=== PATIENT | male | born 1965 | race Caucasian/White ===

== ENCOUNTER 2019-07-20 16:42 | Emergency (ER) | payer OTHER ==
--- NOTE | 2019-07-20 18:20 | RAD ---
XR Hand Rt 3 View STANDARD: 07/20/2019 6:11 PM CLINICAL INDICATION: Injection injury of the right hand from a decrease none COMPARISON: None. TECHNIQUE: 3 views. Laterality: Right hand. FINDINGS: Bones: No acute fracture or subluxation demonstrated. There is healed deformity involving the right index finger proximal phalanx. There is a ununited fracture involving the ulnar styloid process. 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 Soft Tissue: Soft tissues are normal appearing.. IMPRESSION: No acute fracture or subluxation demonstrated..
[2019-07-20] MEDS ORDERED: Adacel (T-DAP) 0.5 ML SYRINGE ONE (18:30)
[2019-07-20] MEDS ORDERED: Triple Antibiotic Oint 1 GM Packet ONE ×2 (18:32→19:53)
[2019-07-20 18:58] LABS: #Basophils 0.1 thou/uL (0.0-0.2); #Eosinphils 0.1 thou/uL (0.0-0.7); #Monocytes 0.9 thou/uL (0.11-0.59); %Basophils 0.5 % (0.0-1.0); %Lymphocytes 15.5 % (21.0-51.0); %Monocytes 6.8 % (0.0-10.0); %Neutrophils 76.2 % (42.0-75.0); Hemoglobin 15.2 g/dL (14.0-18.0); Mean Corpuscular Hemoglobin 29.4 pg (27.0-31.0); Mean Corpuscular Volume 86.3 fL (78.0-98.0); Mean Platelet Volume 8.1 fL (7.4-10.4); Platelet Count 214 thou/uL (130-400); Red Blood Cell (RBC) Count 5.18 mill/uL (4.70-6.10); White Blood Cell (WBC) Count 13.1 thou/uL (4.8-10.8)
[2019-07-20] MEDS ORDERED: cefTRIAXone\\ROCEPHIN 1 GM VIAL ONE (19:02)
[2019-07-20 19:18] LABS: ALT (SGPT) 37 U/L (8-55); AST (SGOT) 19 U/L (5-34); Alkaline Phosphatase 48 U/L (40-150); Anion Gap 15 mmol/L (10-20); BUN (Urea Nitrogen) 21 mg/dL (8.4-25.7); Bilirubin, Total 0.4 mg/dL (0.2-1.2); Calc. Creatinine Clearance 0 mL/min (70-130); Calcium 9.8 mg/dL (7.8-10.44); Carbon Dioxide 22 mmol/L (22-29); Chloride 102 mmol/L (98-107); Estimated GFR-MDRD 70; Globulin 3.1 g/dL (2.4-3.5); Glucose 97 mg/dL (70-105); Potassium 4.1 mmol/L (3.5-5.1); Protein, Total 8.1 g/dL (6.0-8.3); Sodium 135 mmol/L (136-145)
== END 2019-07-20 20:08 | disposition home or self-care (01) ==
LOC: ERS 16:42
DX: S61.411A Laceration without foreign body of right hand, initial encounter (principal); I10 Essential (primary) hypertension; Z23 Encounter for immunization; W27.0XXA Contact with workbench tool, initial encounter
CPT/HCPCS: 80053; 85025; 90471; 90715; 96365; J0696

== ENCOUNTER 2021-07-19 10:11 | Outpatient (CLI) | payer BC | END 2021-07-19 10:12 | disposition home or self-care (01) | LOC: SCSMRI 10:11 | PROVIDERS: ATTEND Anesthesiology Pain Medicine | DX: M43.16 Spondylolisthesis, lumbar region (principal); M43.17 Spondylolisthesis, lumbosacral region; M48.061 Spinal stenosis, lumbar region without neurogenic claudication; M47.816 Spondylosis without myelopathy or radiculopathy, lumbar region; M51.36 Other intervertebral disc degeneration, lumbar region; M48.07 Spinal stenosis, lumbosacral region | CPT/HCPCS: 72148 ==

== ENCOUNTER 2021-08-24 22:23 | Inpatient (IN) | payer BC ==
[2021-08-24] MEDS ORDERED: Dexamethasone 10 MG/ML VIAL ONE (22:39)
[2021-08-24] MEDS ORDERED: Ketorolac Tromethamine 30 MG/ML VIAL ONE (22:39)
[2021-08-24] MEDS ORDERED: Albuterol 200 PUFF (6.7GM INHALER) ONE (22:39)
[2021-08-24 23:53] LABS: #Lymphocytes 0.7 thou/uL (1.20-3.40); #Monocytes 0.3 thou/uL (0.11-0.59); #Neutrophils 5.2 thou/uL (1.40-6.50); %Basophils 0.4 % (0.0-1.0); %Eosinophils 0.1 % (0.0-10.0); %Lymphocytes 10.8 % (21.0-51.0); %Monocytes 4.9 % (0.0-10.0); %Neutrophils 83.8 % (42.0-75.0); Hemoglobin 12.8 g/dL (14.0-18.0); Mean Corpuscular HGB CONC 32.3 g/dL (32.0-36.0); Mean Corpuscular Hemoglobin 27.6 pg (27.0-31.0); Mean Corpuscular Volume 85.4 fL (78.0-98.0); Mean Platelet Volume 9.6 fL (7.4-10.4); Platelet Count 127 thou/uL (130-400); Red Blood Cell (RBC) Count 4.64 mill/uL (4.70-6.10); White Blood Cell (WBC) Count 6.2 thou/uL (4.8-10.8)
[2021-08-25 00:03] LABS: ALT (SGPT) 35 U/L (8-55); AST (SGOT) 54 U/L (5-34); Albumin 3.5 g/dL (3.5-5.0); Alkaline Phosphatase 40 U/L (40-110); Anion Gap 14 mmol/L (10-20); BUN (Urea Nitrogen) 19 mg/dL (8.4-25.7); Bilirubin, Total 0.4 mg/dL (0.2-1.2); Calc. Creatinine Clearance 0 mL/min (70-130); Calcium 7.9 mg/dL (7.8-10.44); Carbon Dioxide 21 mmol/L (22-29); Chloride 101 mmol/L (98-107); Globulin 2.9 g/dL (2.4-3.5); Glucose 110 mg/dL (70-105); Potassium 3.7 mmol/L (3.5-5.1); Protein, Total 6.4 g/dL (6.0-8.3); Sodium 132 mmol/L (136-145)
[2021-08-25] MEDS ORDERED: Acetaminophen 500 MG TAB ONE (02:38)
[2021-08-25 03:40] LABS: SARS-CoV-2 NAA Rapid Test DETECTED (NotDetected)
[2021-08-25] MEDS ORDERED: Ondansetron PF 4 MG/2 ML Vial IVP PRN (04:30)
[2021-08-25] MEDS ORDERED: Pharmacy to Dose REMDESIVIR IVPB PRN (05:00)
[2021-08-25 07:11] LABS: Hemoglobin 13.2 g/dL (14.0-18.0); Mean Corpuscular HGB CONC 33.1 g/dL (32.0-36.0); Mean Corpuscular Hemoglobin 28.3 pg (27.0-31.0); Mean Corpuscular Volume 85.6 fL (78.0-98.0); Mean Platelet Volume 9.2 fL (7.4-10.4); Platelet Count 145 thou/uL (130-400); Red Blood Cell (RBC) Count 4.66 mill/uL (4.70-6.10); White Blood Cell (WBC) Count 5.7 thou/uL (4.8-10.8)
[2021-08-25 07:57] LABS: Band 13 % (5-11); Eosinophils 1 % (0-10); Lymphocytes 14 % (21-51); MDiff Complete? YES; Monocytes 2 % (0-10); Neutrophil 70 % (42-75); Platelet Morphology Comment Appears Adequate; RBC Morphology Normal
[2021-08-25] MEDS ORDERED: REMDESIVIR 200 MG in Sodium Chloride 0.9% 250 ML 210 ML IV SCH (09:00)
[2021-08-25] MEDS ORDERED: Famotidine 20 MG TAB ONE (09:21)
[2021-08-25] MEDS ORDERED: Enoxaparin Sodium 40 MG/0.4 ML SYRINGE ONE (09:21)
[2021-08-25] MEDS ORDERED: Zinc Sulfate 220 MG CAP ONE (09:28)
[2021-08-25] MEDS ORDERED: Aspirin 325 MG TAB ONE (09:28)
[2021-08-25] MEDS ORDERED: Ascorbic Acid 500 mg Chewable Tablet ONE (09:29)
[2021-08-25] MEDS ORDERED: Enoxaparin Sodium 100 MG/ML SYRINGE ONE (09:30)
[2021-08-25] MEDS ORDERED: Cholecalciferol 1,000 UNITS (25 MCG) TAB ONE (09:30)
[2021-08-25] MEDS: Ascorbic Acid 500 mg Chewable Tablet PO SCH (09:40)
[2021-08-25] MEDS: Famotidine 20 MG TAB PO SCH ×2 (09:40→20:31)
[2021-08-25] MEDS: Cholecalciferol 1,000 UNITS (25 MCG) TAB PO SCH (09:40)
[2021-08-25] MEDS: Enoxaparin Sodium 40 MG/0.4 ML SYRINGE SC SCH ×2 (09:40→20:31)
[2021-08-25] MEDS: Zinc Sulfate 220 MG CAP PO SCH (09:40)
[2021-08-25] MEDS ORDERED: Iopamidol-370 76% 500 ML 1 ML ONE (10:38)
[2021-08-25] MEDS: Dexamethasone 10 MG/ML VIAL SLOW IVP SCH (12:00)
[2021-08-25] MEDS ORDERED: Pharmacy to Dose BARICITINIB IVPB PRN (14:39)
[2021-08-25] MEDS ORDERED: Prevnar 13-Val Conj/PF 0.5 ML SYRINGE IM ONE (15:00)
[2021-08-25] MEDS ORDERED: BARICITINIB 2 MG TAB PO SCH (15:30)
[2021-08-25 16:00] LABS: Base Excess (BEa) -0.4 mEq/L (-2.0 to +3.0); CO2 Tension 30.1 mmHg (35.0-45.0); Calcium, Ionized (arterial) 1.09 mmol/L (1.12-1.30); Carboxyhemoglobin (COHb) 0.5 gm% (0.0-3.0); Hemoglobin (Hb) 13.7 g/dL (14.0-18.0); Potassium - ABG Lab 4.06 mmol/L (3.70-5.30); pH, Arterial 7.48 (7.35-7.45)
[2021-08-25 16:01] LABS: O2 Tension (PaO2), arterial 58.3 mmHg (80.0-100.0)
[2021-08-25 16:02] LABS: ALV-art Gradient 474.475 mmHg (0-20); Puncture Site RRA
[2021-08-25] MEDS: Azithromycin 500 MG in Sodium Chloride 0.9% 250 ML 250 ML IVPB SCH (16:12)
[2021-08-25] MEDS: cefTRIAXone\\ROCEPHIN 500 MG in Sodium Chloride 0.9% 100 ML IVPB SCH (16:13)
[2021-08-26 04:09] LABS: #Lymphocytes 1.1 thou/uL (1.20-3.40); #Monocytes 0.5 thou/uL (0.11-0.59); #Neutrophils 4.5 thou/uL (1.40-6.50); %Basophils 0.1 % (0.0-1.0); %Eosinophils 0.1 % (0.0-10.0); %Lymphocytes 18.1 % (21.0-51.0); %Monocytes 8.8 % (0.0-10.0); %Neutrophils 72.8 % (42.0-75.0); Hemoglobin 12.7 g/dL (14.0-18.0); Mean Corpuscular HGB CONC 32.8 g/dL (32.0-36.0); Mean Corpuscular Hemoglobin 28.4 pg (27.0-31.0); Mean Corpuscular Volume 86.6 fL (78.0-98.0); Mean Platelet Volume 9.5 fL (7.4-10.4); Platelet Count 175 thou/uL (130-400); RBC Distribution Width 13.2 % (11.5-14.5); Red Blood Cell (RBC) Count 4.47 mill/uL (4.70-6.10); White Blood Cell (WBC) Count 6.2 thou/uL (4.8-10.8)
[2021-08-26 04:28] LABS: ALT (SGPT) 43 U/L (8-55); AST (SGOT) 63 U/L (5-34); Albumin 3.5 g/dL (3.5-5.0); Alkaline Phosphatase 43 U/L (40-110); Anion Gap 15 mmol/L (10-20); BUN (Urea Nitrogen) 26 mg/dL (8.4-25.7); Bilirubin, Total 0.4 mg/dL (0.2-1.2); Calc. Creatinine Clearance 0 mL/min (70-130); Calcium 8.5 mg/dL (7.8-10.44); Carbon Dioxide 25 mmol/L (22-29); Chloride 103 mmol/L (98-107); Globulin 2.9 g/dL (2.4-3.5); Glucose 152 mg/dL (70-105); Potassium 4.5 mmol/L (3.5-5.1); Protein, Total 6.4 g/dL (6.0-8.3); Sodium 138 mmol/L (136-145)
[2021-08-26] MEDS: Famotidine 20 MG TAB PO SCH ×2 (08:14→20:06)
[2021-08-26] MEDS: Zinc Sulfate 220 MG CAP PO SCH (08:14)
[2021-08-26] MEDS: BARICITINIB 2 MG TAB PO SCH (08:14)
[2021-08-26] MEDS: Cholecalciferol 1,000 UNITS (25 MCG) TAB PO SCH (08:14)
[2021-08-26] MEDS: REMDESIVIR 100 MG in Sodium Chloride 0.9% 250 ML 230 ML IV SCH (08:14)
[2021-08-26] MEDS: Ascorbic Acid 500 mg Chewable Tablet PO SCH (08:14)
[2021-08-26] MEDS: Enoxaparin Sodium 40 MG/0.4 ML SYRINGE SC SCH (08:14)
[2021-08-26] MEDS: Dexamethasone 10 MG/ML VIAL SLOW IVP SCH (08:18)
[2021-08-26] MEDS: cefTRIAXone\\ROCEPHIN 500 MG in Sodium Chloride 0.9% 100 ML IVPB SCH (15:01)
[2021-08-26] MEDS: Azithromycin 500 MG in Sodium Chloride 0.9% 250 ML 250 ML IVPB SCH (15:01)
[2021-08-26] MEDS: methylPREDNISolone Sod Succ/PF 125 MG in Sodium Chloride 0.9% 250 ML 250 ML IVPB SCH (16:08)
[2021-08-26] MEDS: Enoxaparin Sodium 60 MG/0.6 ML SYRINGE SC SCH (20:06)
[2021-08-27] MEDS: Benzonatate 100 MG CAP PO PRN (00:27)
[2021-08-27 04:54] LABS: Hemoglobin 12.2 g/dL (14.0-18.0); Mean Corpuscular HGB CONC 31.5 g/dL (32.0-36.0); Mean Corpuscular Hemoglobin 27.5 pg (27.0-31.0); Mean Corpuscular Volume 87.3 fL (78.0-98.0); Mean Platelet Volume 9.8 fL (7.4-10.4); Platelet Count 230 thou/uL (130-400); RBC Distribution Width 13.1 % (11.5-14.5); Red Blood Cell (RBC) Count 4.45 mill/uL (4.70-6.10); White Blood Cell (WBC) Count 10.9 thou/uL (4.8-10.8)
[2021-08-27 05:06] LABS: ALT (SGPT) 45 U/L (8-55); AST (SGOT) 52 U/L (5-34); Albumin 3.5 g/dL (3.5-5.0); Alkaline Phosphatase 53 U/L (40-110); Anion Gap 15 mmol/L (10-20); BUN (Urea Nitrogen) 37 mg/dL (8.4-25.7); Bilirubin, Total 0.5 mg/dL (0.2-1.2); Calc. Creatinine Clearance 138 mL/min (70-130); Calcium 8.2 mg/dL (7.8-10.44); Carbon Dioxide 21 mmol/L (22-29); Chloride 105 mmol/L (98-107); Globulin 2.9 g/dL (2.4-3.5); Glucose 156 mg/dL (70-105); Potassium 4.8 mmol/L (3.5-5.1); Protein, Total 6.4 g/dL (6.0-8.3); Sodium 136 mmol/L (136-145)
[2021-08-27 06:04] LABS: Band 16 % (5-11); Lymphocytes 11 % (21-51); MDiff Complete? YES; Monocytes 2 % (0-10); Neutrophil 69 % (42-75); Reactive Lymphocytes 2 % (0-10)
[2021-08-27] MEDS: BARICITINIB 2 MG TAB PO SCH (08:26)
[2021-08-27] MEDS: Cholecalciferol 1,000 UNITS (25 MCG) TAB PO SCH (08:26)
[2021-08-27] MEDS: Enoxaparin Sodium 60 MG/0.6 ML SYRINGE SC SCH ×2 (08:26→20:47)
[2021-08-27] MEDS: Zinc Sulfate 220 MG CAP PO SCH (08:26)
[2021-08-27] MEDS: Ascorbic Acid 500 mg Chewable Tablet PO SCH (08:26)
[2021-08-27] MEDS: Famotidine 20 MG TAB PO SCH ×2 (08:26→20:48)
[2021-08-27] MEDS: REMDESIVIR 100 MG in Sodium Chloride 0.9% 250 ML 230 ML IV SCH (08:27)
[2021-08-27] MEDS: methylPREDNISolone Sod Succ/PF 125 MG in Sodium Chloride 0.9% 250 ML 250 ML IVPB SCH (12:08)
[2021-08-27] MEDS: cefTRIAXone\\ROCEPHIN 500 MG in Sodium Chloride 0.9% 100 ML IVPB SCH (15:17)
[2021-08-27] MEDS: Azithromycin 500 MG in Sodium Chloride 0.9% 250 ML 250 ML IVPB SCH (15:17)
[2021-08-27] MEDS: Acetaminophen 325 MG TAB PO PRN (20:47)
[2021-08-28] MEDS: Enoxaparin Sodium 60 MG/0.6 ML SYRINGE SC SCH ×2 (07:39→19:56)
[2021-08-28] MEDS: Zinc Sulfate 220 MG CAP PO SCH (07:39)
[2021-08-28] MEDS: Ascorbic Acid 500 mg Chewable Tablet PO SCH (07:39)
[2021-08-28] MEDS: Furosemide 40 MG/4 ML VIAL SLOW IVP SCH (07:39)
[2021-08-28] MEDS: BARICITINIB 2 MG TAB PO SCH (07:40)
[2021-08-28] MEDS: Famotidine 20 MG TAB PO SCH ×2 (07:40→19:56)
[2021-08-28] MEDS: Cholecalciferol 1,000 UNITS (25 MCG) TAB PO SCH (07:43)
[2021-08-28 07:50] LABS: ALT (SGPT) 45 U/L (8-55); AST (SGOT) 42 U/L (5-34); Albumin 3.5 g/dL (3.5-5.0); Alkaline Phosphatase 80 U/L (40-110); Anion Gap 14 mmol/L (10-20); BUN (Urea Nitrogen) 37 mg/dL (8.4-25.7); Bilirubin, Total 0.5 mg/dL (0.2-1.2); Calc. Creatinine Clearance 147 mL/min (70-130); Calcium 8.2 mg/dL (7.8-10.44); Carbon Dioxide 21 mmol/L (22-29); Chloride 107 mmol/L (98-107); Globulin 3.2 g/dL (2.4-3.5); Glucose 166 mg/dL (70-105); Potassium 4.6 mmol/L (3.5-5.1); Protein, Total 6.7 g/dL (6.0-8.3); Sodium 137 mmol/L (136-145)
[2021-08-28 08:03] LABS: Mean Corpuscular HGB CONC 32.8 g/dL (32.0-36.0); Mean Corpuscular Hemoglobin 28.3 pg (27.0-31.0); Mean Corpuscular Volume 86.4 fL (78.0-98.0); Mean Platelet Volume 9.1 fL (7.4-10.4); Platelet Count 277 thou/uL (130-400); RBC Distribution Width 12.9 % (11.5-14.5); Red Blood Cell (RBC) Count 4.59 mill/uL (4.70-6.10); White Blood Cell (WBC) Count 14.8 thou/uL (4.8-10.8)
[2021-08-28 08:19] LABS: Band 3 % (5-11); Lymphocytes 10 % (21-51); MDiff Complete? YES; Monocytes 8 % (0-10); Myelocyte 1 % (0-0); Neutrophil 77 % (42-75); Platelet Morphology Comment Appears Adequate; RBC Morphology Normal; Reactive Lymphocytes 1 % (0-10)
[2021-08-28] MEDS: REMDESIVIR 100 MG in Sodium Chloride 0.9% 250 ML 230 ML IV SCH (09:12)
[2021-08-28] MEDS: methylPREDNISolone Sod Succ/PF 125 MG in Sodium Chloride 0.9% 250 ML 250 ML IVPB SCH (10:26)
[2021-08-28] MEDS: Azithromycin 500 MG in Sodium Chloride 0.9% 250 ML 250 ML IVPB SCH (15:19)
[2021-08-28] MEDS: cefTRIAXone\\ROCEPHIN 500 MG in Sodium Chloride 0.9% 100 ML IVPB SCH (15:20)
[2021-08-29] MEDS: Famotidine 20 MG TAB PO SCH ×2 (09:21→20:01)
[2021-08-29] MEDS: REMDESIVIR 100 MG in Sodium Chloride 0.9% 250 ML 230 ML IV SCH (09:21)
[2021-08-29] MEDS: BARICITINIB 2 MG TAB PO SCH (09:21)
[2021-08-29] MEDS: Enoxaparin Sodium 60 MG/0.6 ML SYRINGE SC SCH ×2 (09:21→20:01)
[2021-08-29] MEDS: Cholecalciferol 1,000 UNITS (25 MCG) TAB PO SCH (09:21)
[2021-08-29] MEDS: Furosemide 40 MG/4 ML VIAL SLOW IVP SCH (09:21)
[2021-08-29] MEDS: Ascorbic Acid 500 mg Chewable Tablet PO SCH (09:21)
[2021-08-29] MEDS: Zinc Sulfate 220 MG CAP PO SCH (09:21)
[2021-08-29] MEDS: ALPRAZolam 0.25 MG TAB PO PRN ×2 (12:26→20:02)
[2021-08-29] MEDS: Loratadine 10 MG TAB PO PRN (12:27)
[2021-08-29] MEDS: cefTRIAXone\\ROCEPHIN 500 MG in Sodium Chloride 0.9% 100 ML IVPB SCH (15:33)
[2021-08-29] MEDS: methylPREDNISolone Sod Succ/PF 125 MG in Sodium Chloride 0.9% 250 ML 250 ML IVPB SCH (15:33)
[2021-08-29] MEDS: Azithromycin 500 MG in Sodium Chloride 0.9% 250 ML 250 ML IVPB SCH (15:33)
[2021-08-30 05:05] LABS: Hemoglobin 13.4 g/dL (14.0-18.0); Mean Corpuscular Hemoglobin 28.1 pg (27.0-31.0); Mean Platelet Volume 9.3 fL (7.4-10.4); Platelet Count 195 thou/uL (130-400); RBC Distribution Width 12.8 % (11.5-14.5); Red Blood Cell (RBC) Count 4.79 mill/uL (4.70-6.10); White Blood Cell (WBC) Count 20.5 thou/uL (4.8-10.8)
[2021-08-30 05:32] LABS: Anion Gap 15 mmol/L (10-20); BUN (Urea Nitrogen) 30 mg/dL (8.4-25.7); Calc. Creatinine Clearance 163 mL/min (70-130); Calcium 8.4 mg/dL (7.8-10.44); Carbon Dioxide 23 mmol/L (22-29); Chloride 106 mmol/L (98-107); Glucose 156 mg/dL (70-105); Potassium 4.6 mmol/L (3.5-5.1); Sodium 139 mmol/L (136-145)
[2021-08-30 06:09] LABS: Band 4 % (5-11); Lymphocytes 2 % (21-51); MDiff Complete? YES; Monocytes 7 % (0-10); Neutrophil 87 % (42-75)
[2021-08-30] MEDS: Famotidine 20 MG TAB PO SCH ×2 (08:10→20:11)
[2021-08-30] MEDS: Ascorbic Acid 500 mg Chewable Tablet PO SCH (08:11)
[2021-08-30] MEDS: BARICITINIB 2 MG TAB PO SCH (08:11)
[2021-08-30] MEDS: ALPRAZolam 0.25 MG TAB PO PRN ×2 (08:12→20:11)
[2021-08-30] MEDS: Furosemide 40 MG/4 ML VIAL SLOW IVP SCH (08:12)
[2021-08-30] MEDS: Zinc Sulfate 220 MG CAP PO SCH (08:12)
[2021-08-30] MEDS: Enoxaparin Sodium 60 MG/0.6 ML SYRINGE SC SCH ×2 (08:14→20:11)
[2021-08-30] MEDS: Cholecalciferol 1,000 UNITS (25 MCG) TAB PO SCH (08:17)
[2021-08-30] MEDS: methylPREDNISolone Sod Succ/PF 125 MG in Sodium Chloride 0.9% 250 ML 250 ML IVPB SCH (15:27)
[2021-08-30] MEDS: cefTRIAXone\\ROCEPHIN 500 MG in Sodium Chloride 0.9% 100 ML IVPB SCH (15:27)
[2021-08-30] MEDS: Azithromycin 500 MG in Sodium Chloride 0.9% 250 ML 250 ML IVPB SCH (15:27)
[2021-08-30] MEDS: FlunisoLIDE 0.025% Nasal Spray 25 ml Bottle EA NARE SCH (20:10)
[2021-08-31] MEDS: Furosemide 40 MG/4 ML VIAL SLOW IVP SCH (08:39)
[2021-08-31] MEDS: Enoxaparin Sodium 60 MG/0.6 ML SYRINGE SC SCH ×2 (08:39→21:11)
[2021-08-31] MEDS: BARICITINIB 2 MG TAB PO SCH (08:41)
[2021-08-31] MEDS: Zinc Sulfate 220 MG CAP PO SCH (08:41)
[2021-08-31] MEDS: Ascorbic Acid 500 mg Chewable Tablet PO SCH (08:41)
[2021-08-31] MEDS: FlunisoLIDE 0.025% Nasal Spray 25 ml Bottle EA NARE SCH ×2 (08:42→21:18)
[2021-08-31] MEDS: Famotidine 20 MG TAB PO SCH ×2 (08:42→21:13)
[2021-08-31] MEDS: Cholecalciferol 1,000 UNITS (25 MCG) TAB PO SCH (08:42)
[2021-08-31] MEDS: traMADol HCl 50 MG TAB PO PRN ×2 (10:50→21:11)
[2021-08-31] MEDS: methylPREDNISolone Sod Succ/PF 125 MG in Sodium Chloride 0.9% 250 ML 250 ML IVPB SCH (17:08)
[2021-09-01] MEDS: Enoxaparin Sodium 60 MG/0.6 ML SYRINGE SC SCH ×2 (09:34→21:32)
[2021-09-01] MEDS: Furosemide 40 MG/4 ML VIAL SLOW IVP SCH (09:34)
[2021-09-01] MEDS: Ascorbic Acid 500 mg Chewable Tablet PO SCH (09:37)
[2021-09-01] MEDS: Zinc Sulfate 220 MG CAP PO SCH (09:37)
[2021-09-01] MEDS: Famotidine 20 MG TAB PO SCH ×2 (09:38→21:51)
[2021-09-01] MEDS: BARICITINIB 2 MG TAB PO SCH (09:38)
[2021-09-01] MEDS: FlunisoLIDE 0.025% Nasal Spray 25 ml Bottle EA NARE SCH ×2 (09:38→21:53)
[2021-09-01] MEDS: Cholecalciferol 1,000 UNITS (25 MCG) TAB PO SCH (09:38)
[2021-09-01] MEDS: methylPREDNISolone Sod Succ/PF 125 MG in Sodium Chloride 0.9% 250 ML 250 ML IVPB SCH (16:34)
[2021-09-01] MEDS: traMADol HCl 50 MG TAB PO PRN (21:52)
[2021-09-02] MEDS: Enoxaparin Sodium 60 MG/0.6 ML SYRINGE SC SCH ×2 (09:19→21:28)
[2021-09-02] MEDS: BARICITINIB 2 MG TAB PO SCH (09:19)
[2021-09-02] MEDS: FlunisoLIDE 0.025% Nasal Spray 25 ml Bottle EA NARE SCH ×2 (09:19→21:28)
[2021-09-02] MEDS: Ascorbic Acid 500 mg Chewable Tablet PO SCH (09:19)
[2021-09-02] MEDS: Furosemide 40 MG/4 ML VIAL SLOW IVP SCH (09:21)
[2021-09-02] MEDS: Famotidine 20 MG TAB PO SCH ×2 (09:21→21:28)
[2021-09-02] MEDS: Zinc Sulfate 220 MG CAP PO SCH (09:22)
[2021-09-02] MEDS: Cholecalciferol 1,000 UNITS (25 MCG) TAB PO SCH (10:20)
[2021-09-02] MEDS: methylPREDNISolone Sod Succ/PF 125 MG in Sodium Chloride 0.9% 250 ML 250 ML IVPB SCH (16:54)
[2021-09-03 06:22] LABS: #Basophils 0.1 thou/uL (0.0-0.2); #Eosinphils 0.1 thou/uL (0.0-0.7); #Lymphocytes 0.6 thou/uL (1.20-3.40); #Monocytes 1.1 thou/uL (0.11-0.59); #Neutrophils 18.6 thou/uL (1.40-6.50); %Basophils 0.5 % (0.0-1.0); %Eosinophils 0.3 % (0.0-10.0); %Lymphocytes 3.1 % (21.0-51.0); %Monocytes 5.2 % (0.0-10.0); %Neutrophils 90.9 % (42.0-75.0); Hemoglobin 14.3 g/dL (14.0-18.0); Mean Corpuscular HGB CONC 33.6 g/dL (32.0-36.0); Mean Corpuscular Hemoglobin 28.1 pg (27.0-31.0); Mean Corpuscular Volume 83.9 fL (78.0-98.0); Mean Platelet Volume 9.5 fL (7.4-10.4); Platelet Count 263 thou/uL (130-400); RBC Distribution Width 12.8 % (11.5-14.5); Red Blood Cell (RBC) Count 5.06 mill/uL (4.70-6.10); White Blood Cell (WBC) Count 20.5 thou/uL (4.8-10.8)
[2021-09-03 06:38] LABS: ALT (SGPT) 42 U/L (8-55); AST (SGOT) 25 U/L (5-34); Albumin 3.5 g/dL (3.5-5.0); Alkaline Phosphatase 73 U/L (40-110); Anion Gap 15 mmol/L (10-20); BUN (Urea Nitrogen) 27 mg/dL (8.4-25.7); Bilirubin, Total 0.8 mg/dL (0.2-1.2); Calc. Creatinine Clearance 163 mL/min (70-130); Calcium 8.7 mg/dL (7.8-10.44); Carbon Dioxide 25 mmol/L (22-29); Chloride 99 mmol/L (98-107); Globulin 3.2 g/dL (2.4-3.5); Glucose 166 mg/dL (70-105); Protein, Total 6.7 g/dL (6.0-8.3); Sodium 134 mmol/L (136-145)
[2021-09-03] MEDS: Enoxaparin Sodium 60 MG/0.6 ML SYRINGE SC SCH ×2 (08:15→21:28)
[2021-09-03] MEDS: Zinc Sulfate 220 MG CAP PO SCH (08:16)
[2021-09-03] MEDS: Famotidine 20 MG TAB PO SCH (08:16)
[2021-09-03] MEDS: Furosemide 40 MG/4 ML VIAL SLOW IVP SCH (08:16)
[2021-09-03] MEDS: Ascorbic Acid 500 mg Chewable Tablet PO SCH (08:16)
[2021-09-03] MEDS: Cholecalciferol 1,000 UNITS (25 MCG) TAB PO SCH (08:17)
[2021-09-03] MEDS: BARICITINIB 2 MG TAB PO SCH (08:17)
[2021-09-03] MEDS: FlunisoLIDE 0.025% Nasal Spray 25 ml Bottle EA NARE SCH ×2 (09:00→21:50)
[2021-09-03] MEDS: methylPREDNISolone Sod Succ/PF 125 MG in Sodium Chloride 0.9% 250 ML 250 ML IVPB SCH (18:35)
[2021-09-04 04:45] LABS: Anion Gap 15 mmol/L (10-20); BUN (Urea Nitrogen) 30 mg/dL (8.4-25.7); Calc. Creatinine Clearance 152 mL/min (70-130); Calcium 8.9 mg/dL (7.8-10.44); Carbon Dioxide 24 mmol/L (22-29); Chloride 98 mmol/L (98-107); Glucose 172 mg/dL (70-105); Potassium 5.2 mmol/L (3.5-5.1); Sodium 132 mmol/L (136-145)
[2021-09-04 04:52] LABS: Band 3 % (5-11); Lymphocytes 1 % (21-51); MDiff Complete? YES; Mean Corpuscular HGB CONC 33.1 g/dL (32.0-36.0); Mean Corpuscular Hemoglobin 27.9 pg (27.0-31.0); Mean Corpuscular Volume 84.4 fL (78.0-98.0); Mean Platelet Volume 10.2 fL (7.4-10.4); Metamyelocyte 1 % (0-0); Monocytes 4 % (0-10); Myelocyte 1 % (0-0); Neutrophil 90 % (42-75); Platelet Count 280 thou/uL (130-400); Platelet Morphology Comment Appears Adequate; RBC Distribution Width 12.9 % (11.5-14.5); RBC Morphology Normal; Red Blood Cell (RBC) Count 5.02 mill/uL (4.70-6.10); White Blood Cell (WBC) Count 22.2 thou/uL (4.8-10.8)
[2021-09-04] MEDS: predniSONE 20 MG TAB PO SCH (10:03)
[2021-09-04] MEDS: Furosemide 20 MG TAB PO SCH (10:03)
[2021-09-04] MEDS: Zinc Sulfate 220 MG CAP PO SCH (10:03)
[2021-09-04] MEDS: FlunisoLIDE 0.025% Nasal Spray 25 ml Bottle EA NARE SCH ×2 (10:03→20:15)
[2021-09-04] MEDS: Ascorbic Acid 500 mg Chewable Tablet PO SCH (10:03)
[2021-09-04] MEDS: Enoxaparin Sodium 60 MG/0.6 ML SYRINGE SC SCH ×2 (10:03→20:14)
[2021-09-04] MEDS: Cholecalciferol 1,000 UNITS (25 MCG) TAB PO SCH (10:03)
[2021-09-04] MEDS: BARICITINIB 2 MG TAB PO SCH (10:10)
[2021-09-04] MEDS: Loratadine 10 MG TAB PO PRN (20:15)
[2021-09-04] MEDS: Benzonatate 100 MG CAP PO PRN (20:15)
[2021-09-05] MEDS: Benzonatate 100 MG CAP PO PRN ×3 (00:34→21:06)
[2021-09-05] MEDS: ALPRAZolam 0.25 MG TAB PO PRN ×2 (00:34→21:06)
[2021-09-05 04:33] LABS: Anion Gap 16 mmol/L (10-20); BUN (Urea Nitrogen) 25 mg/dL (8.4-25.7); Calc. Creatinine Clearance 144 mL/min (70-130); Calcium 9.1 mg/dL (7.8-10.44); Carbon Dioxide 26 mmol/L (22-29); Chloride 98 mmol/L (98-107); Glucose 93 mg/dL (70-105); Potassium 4.6 mmol/L (3.5-5.1); Sodium 135 mmol/L (136-145)
[2021-09-05 04:39] LABS: Band 1 % (5-11); Hemoglobin 14.5 g/dL (14.0-18.0); Lymphocytes 5 % (21-51); MDiff Complete? YES; Mean Corpuscular Volume 84.6 fL (78.0-98.0); Mean Platelet Volume 10.6 fL (7.4-10.4); Monocytes 23 % (0-10); Neutrophil 71 % (42-75); Platelet Count 263 thou/uL (130-400); Platelet Morphology Comment Appears Adequate; RBC Morphology Normal; Red Blood Cell (RBC) Count 5.17 mill/uL (4.70-6.10); White Blood Cell (WBC) Count 24.1 thou/uL (4.8-10.8)
[2021-09-05] MEDS: FlunisoLIDE 0.025% Nasal Spray 25 ml Bottle EA NARE SCH ×2 (09:21→21:06)
[2021-09-05] MEDS: Enoxaparin Sodium 60 MG/0.6 ML SYRINGE SC SCH ×2 (09:22→21:06)
[2021-09-05] MEDS: Furosemide 20 MG TAB PO SCH (09:22)
[2021-09-05] MEDS: Zinc Sulfate 220 MG CAP PO SCH (09:22)
[2021-09-05] MEDS: predniSONE 20 MG TAB PO SCH (09:22)
[2021-09-05] MEDS: Ascorbic Acid 500 mg Chewable Tablet PO SCH (09:22)
[2021-09-05] MEDS: Cholecalciferol 1,000 UNITS (25 MCG) TAB PO SCH (09:22)
[2021-09-05] MEDS: BARICITINIB 2 MG TAB PO SCH (09:30)
[2021-09-05] MEDS: Loratadine 10 MG TAB PO PRN (21:06)
[2021-09-06 04:32] LABS: #Eosinphils 0.3 thou/uL (0.0-0.7); #Lymphocytes 1.3 thou/uL (1.20-3.40); #Monocytes 1.6 thou/uL (0.11-0.59); %Basophils 0.1 % (0.0-1.0); %Eosinophils 1.7 % (0.0-10.0); %Lymphocytes 6.4 % (21.0-51.0); %Monocytes 7.8 % (0.0-10.0); %Neutrophils 84.1 % (42.0-75.0); Hemoglobin 13.9 g/dL (14.0-18.0); Mean Corpuscular HGB CONC 33.4 g/dL (32.0-36.0); Mean Corpuscular Hemoglobin 28.2 pg (27.0-31.0); Mean Corpuscular Volume 84.4 fL (78.0-98.0); Platelet Count 270 thou/uL (130-400); RBC Distribution Width 12.9 % (11.5-14.5); Red Blood Cell (RBC) Count 4.92 mill/uL (4.70-6.10); White Blood Cell (WBC) Count 20.3 thou/uL (4.8-10.8)
[2021-09-06 04:53] LABS: Anion Gap 13 mmol/L (10-20); BUN (Urea Nitrogen) 24 mg/dL (8.4-25.7); Calc. Creatinine Clearance 169 mL/min (70-130); Calcium 8.4 mg/dL (7.8-10.44); Carbon Dioxide 26 mmol/L (22-29); Chloride 99 mmol/L (98-107); Glucose 87 mg/dL (70-105); Potassium 4.2 mmol/L (3.5-5.1); Sodium 134 mmol/L (136-145)
[2021-09-06] MEDS: Benzonatate 100 MG CAP PO PRN ×2 (08:34→21:21)
[2021-09-06] MEDS: Enoxaparin Sodium 60 MG/0.6 ML SYRINGE SC SCH ×2 (08:34→21:21)
[2021-09-06] MEDS: Ascorbic Acid 500 mg Chewable Tablet PO SCH (08:34)
[2021-09-06] MEDS: Zinc Sulfate 220 MG CAP PO SCH (08:35)
[2021-09-06] MEDS: Furosemide 20 MG TAB PO SCH (08:35)
[2021-09-06] MEDS: predniSONE 20 MG TAB PO SCH (08:35)
[2021-09-06] MEDS: BARICITINIB 2 MG TAB PO SCH (08:35)
[2021-09-06] MEDS: FlunisoLIDE 0.025% Nasal Spray 25 ml Bottle EA NARE SCH ×2 (08:35→22:11)
[2021-09-06] MEDS: Cholecalciferol 1,000 UNITS (25 MCG) TAB PO SCH (08:35)
[2021-09-06] MEDS: guaiFENesin/Codeine 200 mg/20 mg 10 ml Cup PO PRN (18:07)
[2021-09-06] MEDS: Loratadine 10 MG TAB PO PRN (18:07)
[2021-09-06] MEDS: ALPRAZolam 0.25 MG TAB PO PRN (21:21)
[2021-09-07 04:14] LABS: #Eosinphils 0.3 thou/uL (0.0-0.7); #Monocytes 1.7 thou/uL (0.11-0.59); #Neutrophils 17.4 thou/uL (1.40-6.50); %Basophils 0.2 % (0.0-1.0); %Eosinophils 1.5 % (0.0-10.0); %Monocytes 8.2 % (0.0-10.0); %Neutrophils 85.2 % (42.0-75.0); Hemoglobin 12.7 g/dL (14.0-18.0); Mean Corpuscular HGB CONC 32.6 g/dL (32.0-36.0); Mean Corpuscular Volume 85.9 fL (78.0-98.0); Mean Platelet Volume 9.8 fL (7.4-10.4); Platelet Count 244 thou/uL (130-400); RBC Distribution Width 13.3 % (11.5-14.5); Red Blood Cell (RBC) Count 4.55 mill/uL (4.70-6.10); White Blood Cell (WBC) Count 20.5 thou/uL (4.8-10.8)
[2021-09-07 04:39] LABS: Anion Gap 13 mmol/L (10-20); BUN (Urea Nitrogen) 17 mg/dL (8.4-25.7); Calc. Creatinine Clearance 171 mL/min (70-130); Calcium 8.4 mg/dL (7.8-10.44); Carbon Dioxide 29 mmol/L (22-29); Chloride 97 mmol/L (98-107); Glucose 89 mg/dL (70-105); Potassium 4.2 mmol/L (3.5-5.1); Sodium 135 mmol/L (136-145)
[2021-09-07] MEDS: Benzonatate 100 MG CAP PO PRN ×3 (07:41→21:46)
[2021-09-07] MEDS: guaiFENesin/Codeine 200 mg/20 mg 10 ml Cup PO PRN ×2 (07:41→14:45)
[2021-09-07] MEDS: Loratadine 10 MG TAB PO PRN (07:41)
[2021-09-07] MEDS: Zinc Sulfate 220 MG CAP PO SCH (08:40)
[2021-09-07] MEDS: Cholecalciferol 1,000 UNITS (25 MCG) TAB PO SCH (08:40)
[2021-09-07] MEDS: BARICITINIB 2 MG TAB PO SCH (08:40)
[2021-09-07] MEDS: predniSONE 20 MG TAB PO SCH (08:40)
[2021-09-07] MEDS: Furosemide 20 MG TAB PO SCH (08:40)
[2021-09-07] MEDS: Ascorbic Acid 500 mg Chewable Tablet PO SCH (08:40)
[2021-09-07] MEDS: Enoxaparin Sodium 60 MG/0.6 ML SYRINGE SC SCH ×2 (08:40→21:45)
[2021-09-07] MEDS: FlunisoLIDE 0.025% Nasal Spray 25 ml Bottle EA NARE SCH ×2 (08:41→21:48)
[2021-09-07] MEDS ORDERED: methylPREDNISolone Sod Succ/PF 125 MG/2 ML VIAL IVP SCH (09:15)
[2021-09-07] MEDS ORDERED: Metoprolol Tartrate 5 MG/5 ML VIAL IVP SCH (09:15)
[2021-09-07] MEDS ORDERED: Zolpidem Tartrate 5 MG TAB PO PRN (09:41)
[2021-09-07] MEDS: ALPRAZolam 0.25 MG TAB PO PRN (21:46)
[2021-09-07] MEDS: Acetaminophen 325 MG TAB PO PRN (21:57)
[2021-09-08] MEDS: guaiFENesin/Codeine 200 mg/20 mg 10 ml Cup PO PRN (03:15)
[2021-09-08] MEDS: Loratadine 10 MG TAB PO PRN ×2 (03:15→08:46)
[2021-09-08 04:24] LABS: #Eosinphils 0.1 thou/uL (0.0-0.7); #Monocytes 1.5 thou/uL (0.11-0.59); #Neutrophils 16.3 thou/uL (1.40-6.50); %Basophils 0.1 % (0.0-1.0); %Eosinophils 0.3 % (0.0-10.0); %Lymphocytes 5.2 % (21.0-51.0); %Monocytes 7.7 % (0.0-10.0); %Neutrophils 86.6 % (42.0-75.0); Hemoglobin 13.7 g/dL (14.0-18.0); Mean Corpuscular HGB CONC 31.7 g/dL (32.0-36.0); Mean Corpuscular Hemoglobin 27.3 pg (27.0-31.0); Mean Platelet Volume 10.6 fL (7.4-10.4); Platelet Count 260 thou/uL (130-400); RBC Distribution Width 13.3 % (11.5-14.5); White Blood Cell (WBC) Count 18.8 thou/uL (4.8-10.8)
[2021-09-08 04:37] LABS: Anion Gap 15 mmol/L (10-20); BUN (Urea Nitrogen) 20 mg/dL (8.4-25.7); Calc. Creatinine Clearance 167 mL/min (70-130); Calcium 8.9 mg/dL (7.8-10.44); Carbon Dioxide 27 mmol/L (22-29); Chloride 99 mmol/L (98-107); Glucose 97 mg/dL (70-105); Potassium 4.6 mmol/L (3.5-5.1); Sodium 136 mmol/L (136-145)
[2021-09-08] MEDS ORDERED: predniSONE 20 MG TAB PO SCH (08:00)
[2021-09-08] MEDS: ALPRAZolam 0.25 MG TAB PO PRN (08:45)
[2021-09-08] MEDS: Zinc Sulfate 220 MG CAP PO SCH (08:45)
[2021-09-08] MEDS: Benzonatate 100 MG CAP PO PRN (08:46)
[2021-09-08] MEDS: Furosemide 20 MG TAB PO SCH (08:46)
[2021-09-08] MEDS: Ascorbic Acid 500 mg Chewable Tablet PO SCH (08:46)
[2021-09-08] MEDS: Enoxaparin Sodium 60 MG/0.6 ML SYRINGE SC SCH ×2 (08:46→20:16)
[2021-09-08] MEDS: Cholecalciferol 1,000 UNITS (25 MCG) TAB PO SCH (08:46)
[2021-09-08] MEDS: FlunisoLIDE 0.025% Nasal Spray 25 ml Bottle EA NARE SCH ×2 (08:47→20:16)
[2021-09-08] MEDS ORDERED: Metoprolol Tartrate 5 MG/5 ML VIAL ONE (10:17)
[2021-09-09 05:20] LABS: Mean Corpuscular HGB CONC 34.3 g/dL (32.0-36.0); Mean Corpuscular Hemoglobin 29.3 pg (27.0-31.0); Mean Corpuscular Volume 85.4 fL (78.0-98.0); Mean Platelet Volume 10.1 fL (7.4-10.4); Platelet Count 256 thou/uL (130-400); RBC Distribution Width 13.4 % (11.5-14.5); Red Blood Cell (RBC) Count 4.77 mill/uL (4.70-6.10)
[2021-09-09 05:33] LABS: Phosphorus 3.3 mg/dL (2.3-4.7)
[2021-09-09 05:40] LABS: ALT (SGPT) 36 U/L (8-55); AST (SGOT) 23 U/L (5-34); Albumin 3.3 g/dL (3.5-5.0); Alkaline Phosphatase 58 U/L (40-110); Anion Gap 13 mmol/L (10-20); BUN (Urea Nitrogen) 18 mg/dL (8.4-25.7); Bilirubin, Total 0.8 mg/dL (0.2-1.2); Calc. Creatinine Clearance 149 mL/min (70-130); Calcium 8.8 mg/dL (7.8-10.44); Carbon Dioxide 32 mmol/L (22-29); Chloride 98 mmol/L (98-107); Glucose 75 mg/dL (70-105); Magnesium 2.5 mg/dL (1.6-2.6); Potassium 4.4 mmol/L (3.5-5.1); Protein, Total 6.3 g/dL (6.0-8.3); Sodium 139 mmol/L (136-145)
[2021-09-09 06:12] LABS: Band 7 % (5-11); Eosinophils 1 % (0-10); Lymphocytes 2 % (21-51); MDiff Complete? YES; Monocytes 6 % (0-10); Neutrophil 84 % (42-75)
[2021-09-09] MEDS ORDERED: Dexamethasone 10 MG in Sodium Chloride 0.9% 50 ML IVPB SCH (09:00)
[2021-09-09] MEDS: Dexamethasone 4 mg/ml Vial SLOW IVP SCH (09:06)
[2021-09-09] MEDS: Cholecalciferol 1,000 UNITS (25 MCG) TAB PO SCH (09:07)
[2021-09-09] MEDS: Ascorbic Acid 500 mg Chewable Tablet PO SCH (09:07)
[2021-09-09] MEDS: Zinc Sulfate 220 MG CAP PO SCH (09:07)
[2021-09-09] MEDS: Furosemide 20 MG TAB PO SCH (09:08)
[2021-09-09] MEDS: Enoxaparin Sodium 60 MG/0.6 ML SYRINGE SC SCH ×2 (09:08→20:14)
[2021-09-09] MEDS ORDERED: Propofol 1,000 MG/100 ML VIAL IV ONE (10:12)
[2021-09-09] MEDS ORDERED: Rocuronium Bromide 50 MG/5 ML VIAL ONE (10:31)
[2021-09-09] MEDS ORDERED: Midazolam HCl 2 mg/2 ml Vial ONE (10:32)
[2021-09-09] MEDS ORDERED: Norepinephrine 8 MG/0.9% NS 0 ML ONE (10:50)
[2021-09-09 11:14] LABS: Actual Bicarbonate (HCO3a) 28.6 mEq/L (22-28); Base Excess (BEa) 1.5 mEq/L (-2.0 to +3.0); CO2 Tension 55.7 mmHg (35.0-45.0); Calcium, Ionized (arterial) 1.14 mmol/L (1.12-1.30); Carboxyhemoglobin (COHb) 0.9 gm% (0.0-3.0); Hemoglobin (Hb) 13.4 g/dL (14.0-18.0); O2 Tension (PaO2), arterial 67.6 mmHg (80.0-100.0); Potassium - ABG Lab 4.68 mmol/L (3.70-5.30); pH, Arterial 7.33 (7.35-7.45)
[2021-09-09 11:21] LABS: ALV-art Gradient 504.475 mmHg (0-20); Puncture Site LRA
[2021-09-09] MEDS ORDERED: Fentanyl CADD 100 ML ONE ×2 (11:26→22:57)
[2021-09-09] MEDS ORDERED: Lorazepam 2 MG/ML VIAL ONE (11:42)
[2021-09-09] MEDS ORDERED: Vecuronium 10 MG VIAL ONE (11:43)
[2021-09-09] MEDS ORDERED: Morphine 2 MG/ML VIAL SLOW IVP PRN (12:30)
[2021-09-09] MEDS ORDERED: DISCONTINUE PREVIOUS NARCOTIC PAIN MEDICATIONS AND BENZODIAZEPINES FS SCH (12:30)
[2021-09-09] MEDS ORDERED: Fentanyl BOLUS 250 ML IVPB PRN (12:30)
[2021-09-09] MEDS ORDERED: Propofol BOLUS 1,000 MG/100 ML VIAL IV PRN (12:30)
[2021-09-09 12:59] LABS: Actual Bicarbonate (HCO3a) 29.3 mEq/L (22-28); Base Excess (BEa) 1.1 mEq/L (-2.0 to +3.0); Calcium, Ionized (arterial) 1.13 mmol/L (1.12-1.30); Carboxyhemoglobin (COHb) 0.5 gm% (0.0-3.0); Hemoglobin (Hb) 13.4 g/dL (14.0-18.0); O2 Tension (PaO2), arterial 65.7 mmHg (80.0-100.0); pH, Arterial 7.28 (7.35-7.45)
[2021-09-09] MEDS: FlunisoLIDE 0.025% Nasal Spray 25 ml Bottle EA NARE SCH ×2 (13:06→20:14)
[2021-09-09 13:28] LABS: CO2 Tension 63.4 mmHg (35.0-45.0); Puncture Site LRA
[2021-09-09] MEDS: Vecuronium 10 MG VIAL IV PRN ×3 (13:58→20:10)
[2021-09-09] MEDS ORDERED: Piperacillin/Tazobactam 3.375 GM in Sodium Chloride 0.9% 100 ML IVPB SCH (14:00)
[2021-09-09] MEDS: Propofol 1,000 MG/100 ML VIAL IV PRN ×4 (14:29→22:02)
[2021-09-09] MEDS: Lorazepam 2 MG/ML VIAL SLOW IVP PRN (14:29)
[2021-09-09] MEDS: VANCOMYCIN 2 GRAM/400 ML BAG 2 GM in Premix Bag 1 BAG IVPB SCH (14:34)
[2021-09-09] MEDS ORDERED: Metoprolol Tartrate 5 MG/5 ML VIAL IVP SCH (17:12)
[2021-09-09 20:43] LABS: Bilirubin Negative (Negative); Blood, Urine 1+ (Negative); Glucose, Urine (Dipstick) Normal (Negative); Ketone, Urine 10 mg/dL (Negative); Leukocyte Negative Leu/uL (Negative); Nitrite Negative (Negative); Protein, Urine (Dipstick) 100 mg/dL (Neg-Trace); RBC/HPF 0-3 HPF (0-3); Specific Gravity, Urine 1.044 (1.002-1.036); Squamous Epithelial 0-3 HPF (0-3); Urobilinogen Normal mg/dL (Less than 2); WBC/HPF 0-3 HPF (0-3); pH, Urine 5.5 (5.0-9.0)
[2021-09-09 20:57] LABS: UA Pathologist Review? Unknown Crystals
[2021-09-09 21:00] LABS: Clarity Cloudy (Clear)
[2021-09-09 21:02] LABS: Bacteria/HPF Rare-Few HPF (None Seen)
[2021-09-09 21:03] LABS: Urine Culture Reflex No No
[2021-09-09] MEDS: Piperacillin/Tazobactam 3.375 GM in Sodium Chloride 0.9% 100 ML IVPB SCH (21:41)
[2021-09-09] MEDS: Acetaminophen 325 MG TAB PO PRN (22:02)
[2021-09-09] MEDS: Fentanyl CADD 100 ML IV SCH (23:05)
[2021-09-10] MEDS: VANCOMYCIN 2 GRAM/400 ML BAG 2 GM in Premix Bag 1 BAG IVPB SCH ×2 (02:19→16:53)
[2021-09-10] MEDS: Vecuronium 10 MG VIAL IV PRN ×2 (02:19→11:23)
[2021-09-10] MEDS: Propofol 1,000 MG/100 ML VIAL IV PRN ×5 (02:19→21:44)
[2021-09-10 05:10] LABS: #Lymphocytes 0.9 thou/uL (1.20-3.40); #Monocytes 1.3 thou/uL (0.11-0.59); #Neutrophils 12.7 thou/uL (1.40-6.50); %Basophils 0.1 % (0.0-1.0); %Eosinophils 0.3 % (0.0-10.0); %Lymphocytes 5.7 % (21.0-51.0); %Monocytes 8.9 % (0.0-10.0); %Neutrophils 85.1 % (42.0-75.0); Hemoglobin 11.9 g/dL (14.0-18.0); Mean Corpuscular HGB CONC 32.1 g/dL (32.0-36.0); Mean Corpuscular Volume 87.2 fL (78.0-98.0); Mean Platelet Volume 10.4 fL (7.4-10.4); Platelet Count 237 thou/uL (130-400); Red Blood Cell (RBC) Count 4.25 mill/uL (4.70-6.10); White Blood Cell (WBC) Count 14.9 thou/uL (4.8-10.8)
[2021-09-10] MEDS: Piperacillin/Tazobactam 3.375 GM in Sodium Chloride 0.9% 100 ML IVPB SCH ×3 (05:11→21:41)
[2021-09-10 05:31] LABS: Phosphorus 3.8 mg/dL (2.3-4.7)
[2021-09-10 05:34] LABS: ALT (SGPT) 28 U/L (8-55); AST (SGOT) 19 U/L (5-34); Alkaline Phosphatase 45 U/L (40-110); Anion Gap 13 mmol/L (10-20); BUN (Urea Nitrogen) 24 mg/dL (8.4-25.7); Bilirubin, Total 0.4 mg/dL (0.2-1.2); Calc. Creatinine Clearance 143 mL/min (70-130); Calcium 8.4 mg/dL (7.8-10.44); Carbon Dioxide 30 mmol/L (22-29); Chloride 102 mmol/L (98-107); Globulin 2.6 g/dL (2.4-3.5); Glucose 111 mg/dL (70-105); Magnesium 2.5 mg/dL (1.6-2.6); Potassium 4.7 mmol/L (3.5-5.1); Protein, Total 5.6 g/dL (6.0-8.3); Sodium 140 mmol/L (136-145)
[2021-09-10] MEDS: FlunisoLIDE 0.025% Nasal Spray 25 ml Bottle EA NARE SCH ×2 (08:26→21:42)
[2021-09-10] MEDS: Ascorbic Acid 500 mg Chewable Tablet PO SCH (08:43)
[2021-09-10] MEDS: Enoxaparin Sodium 60 MG/0.6 ML SYRINGE SC SCH ×2 (08:43→21:41)
[2021-09-10] MEDS: Dexamethasone 4 mg/ml Vial SLOW IVP SCH (08:44)
[2021-09-10] MEDS: Zinc Sulfate 220 MG CAP PO SCH (08:44)
[2021-09-10] MEDS: Furosemide 20 MG TAB PO SCH (08:44)
[2021-09-10] MEDS ORDERED: Fentanyl CADD 100 ML ONE ×2 (10:21→21:37)
[2021-09-10] MEDS ORDERED: Vecuronium 10 MG VIAL ONE (11:00)
[2021-09-10] MEDS: Cholecalciferol 1,000 UNITS (25 MCG) TAB PO SCH (11:41)
[2021-09-10] MEDS: Fentanyl CADD 100 ML IV SCH (21:42)
[2021-09-11] MEDS: Propofol 1,000 MG/100 ML VIAL IV PRN ×8 (01:20→21:19)
[2021-09-11 02:31] LABS: #Lymphocytes 0.8 thou/uL (1.20-3.40); #Monocytes 1.1 thou/uL (0.11-0.59); #Neutrophils 11.8 thou/uL (1.40-6.50); %Basophils 0.2 % (0.0-1.0); %Eosinophils 0.3 % (0.0-10.0); %Lymphocytes 5.6 % (21.0-51.0); %Neutrophils 85.9 % (42.0-75.0); Hemoglobin 11.6 g/dL (14.0-18.0); Mean Corpuscular HGB CONC 33.1 g/dL (32.0-36.0); Mean Corpuscular Hemoglobin 28.8 pg (27.0-31.0); Mean Corpuscular Volume 87.2 fL (78.0-98.0); Mean Platelet Volume 9.3 fL (7.4-10.4); Platelet Count 219 thou/uL (130-400); RBC Distribution Width 13.1 % (11.5-14.5); Red Blood Cell (RBC) Count 4.04 mill/uL (4.70-6.10); White Blood Cell (WBC) Count 13.8 thou/uL (4.8-10.8)
[2021-09-11 02:49] LABS: Vancomycin, Trough 10.4 ug/mL
[2021-09-11 03:03] LABS: Phosphorus 4.1 mg/dL (2.3-4.7)
[2021-09-11 03:06] LABS: ALT (SGPT) 26 U/L (8-55); AST (SGOT) 24 U/L (5-34); Albumin 2.9 g/dL (3.5-5.0); Alkaline Phosphatase 41 U/L (40-110); Anion Gap 14 mmol/L (10-20); BUN (Urea Nitrogen) 23 mg/dL (8.4-25.7); Bilirubin, Total 0.4 mg/dL (0.2-1.2); Calc. Creatinine Clearance 149 mL/min (70-130); Calcium 8.2 mg/dL (7.8-10.44); Carbon Dioxide 28 mmol/L (22-29); Chloride 101 mmol/L (98-107); Globulin 2.7 g/dL (2.4-3.5); Glucose 102 mg/dL (70-105); Magnesium 2.4 mg/dL (1.6-2.6); Potassium 4.4 mmol/L (3.5-5.1); Protein, Total 5.6 g/dL (6.0-8.3); Sodium 139 mmol/L (136-145)
[2021-09-11] MEDS: VANCOMYCIN 2 GRAM/400 ML BAG 2 GM in Premix Bag 1 BAG IVPB SCH (03:10)
[2021-09-11] MEDS: Piperacillin/Tazobactam 3.375 GM in Sodium Chloride 0.9% 100 ML IVPB SCH ×3 (05:45→21:19)
[2021-09-11] MEDS ORDERED: Sterile Water 10 ML ONE ×2 (08:36→18:48)
[2021-09-11] MEDS: Vecuronium 10 MG VIAL IV PRN ×2 (08:43→18:56)
[2021-09-11] MEDS: Fentanyl CADD 100 ML IV SCH ×2 (10:08→19:48)
[2021-09-11] MEDS: Enoxaparin Sodium 60 MG/0.6 ML SYRINGE SC SCH ×2 (10:15→21:19)
[2021-09-11] MEDS: Ascorbic Acid 500 mg Chewable Tablet PO SCH (10:15)
[2021-09-11] MEDS: FlunisoLIDE 0.025% Nasal Spray 25 ml Bottle EA NARE SCH ×2 (10:16→22:11)
[2021-09-11] MEDS: Zinc Sulfate 220 MG CAP PO SCH (10:16)
[2021-09-11] MEDS: Dexamethasone 4 mg/ml Vial SLOW IVP SCH (10:16)
[2021-09-11] MEDS: Furosemide 20 MG TAB PO SCH (10:16)
[2021-09-11 10:20] LABS: Actual Bicarbonate (HCO3a) 28.3 mEq/L (22-28); Base Excess (BEa) 3.8 mEq/L (-2.0 to +3.0); CO2 Tension 42.4 mmHg (35.0-45.0); Calcium, Ionized (arterial) 1.15 mmol/L (1.12-1.30); Hemoglobin (Hb) 12.6 g/dL (14.0-18.0); Potassium - ABG Lab 3.98 mmol/L (3.70-5.30); pH, Arterial 7.44 (7.35-7.45)
[2021-09-11] MEDS: VANCOMYCIN 1.75 GM/350 ML BAG 1.75 GM in Premix Bag 1 BAG IVPB SCH ×2 (10:25→18:27)
[2021-09-11] MEDS: Cholecalciferol 1,000 UNITS (25 MCG) TAB PO SCH (10:25)
[2021-09-11 10:40] LABS: O2 Tension (PaO2), arterial 42.5 mmHg (80.0-100.0)
[2021-09-11 10:42] LABS: Puncture Site RRA
[2021-09-11] MEDS: Lorazepam 2 MG/ML VIAL SLOW IVP PRN (16:55)
[2021-09-11] MEDS ORDERED: Fentanyl CADD 100 ML ONE (19:44)
[2021-09-12] MEDS: Vecuronium 10 MG VIAL IV PRN ×4 (01:03→17:42)
[2021-09-12] MEDS: Propofol 1,000 MG/100 ML VIAL IV PRN ×7 (01:03→21:28)
[2021-09-12] MEDS: VANCOMYCIN 1.75 GM/350 ML BAG 1.75 GM in Premix Bag 1 BAG IVPB SCH ×3 (01:06→18:07)
[2021-09-12 01:26] LABS: #Eosinphils 0.1 thou/uL (0.0-0.7); #Monocytes 1.5 thou/uL (0.11-0.59); #Neutrophils 14.4 thou/uL (1.40-6.50); %Basophils 0.2 % (0.0-1.0); %Eosinophils 0.5 % (0.0-10.0); %Lymphocytes 5.9 % (21.0-51.0); %Monocytes 8.7 % (0.0-10.0); %Neutrophils 84.7 % (42.0-75.0); Hemoglobin 12.4 g/dL (14.0-18.0); Mean Corpuscular HGB CONC 33.1 g/dL (32.0-36.0); Mean Corpuscular Hemoglobin 29.1 pg (27.0-31.0); Mean Corpuscular Volume 87.8 fL (78.0-98.0); Mean Platelet Volume 9.9 fL (7.4-10.4); Platelet Count 200 thou/uL (130-400); RBC Distribution Width 13.2 % (11.5-14.5); Red Blood Cell (RBC) Count 4.26 mill/uL (4.70-6.10)
[2021-09-12] MEDS: Lorazepam 2 MG/ML VIAL SLOW IVP PRN ×3 (01:40→12:01)
[2021-09-12 01:48] LABS: Vancomycin, Trough 19.5 ug/mL
[2021-09-12 02:03] LABS: Phosphorus 4.9 mg/dL (2.3-4.7)
[2021-09-12 02:07] LABS: ALT (SGPT) 28 U/L (8-55); AST (SGOT) 31 U/L (5-34); Albumin 3.2 g/dL (3.5-5.0); Alkaline Phosphatase 42 U/L (40-110); Anion Gap 18 mmol/L (10-20); BUN (Urea Nitrogen) 20 mg/dL (8.4-25.7); Bilirubin, Total 0.4 mg/dL (0.2-1.2); Calc. Creatinine Clearance 173 mL/min (70-130); Calcium 8.4 mg/dL (7.8-10.44); Carbon Dioxide 25 mmol/L (22-29); Chloride 100 mmol/L (98-107); Globulin 3.1 g/dL (2.4-3.5); Glucose 102 mg/dL (70-105); Magnesium 2.4 mg/dL (1.6-2.6); Potassium 4.7 mmol/L (3.5-5.1); Protein, Total 6.3 g/dL (6.0-8.3); Sodium 138 mmol/L (136-145)
[2021-09-12] MEDS: Piperacillin/Tazobactam 3.375 GM in Sodium Chloride 0.9% 100 ML IVPB SCH ×3 (06:22→21:28)
[2021-09-12] MEDS ORDERED: Fentanyl CADD 100 ML ONE ×2 (06:29→15:33)
[2021-09-12] MEDS: Fentanyl CADD 100 ML IV SCH ×2 (06:53→15:36)
[2021-09-12 07:07] LABS: Actual Bicarbonate (HCO3a) 32.4 mEq/L (22-28); Base Excess (BEa) 5.1 mEq/L (-2.0 to +3.0); Calcium, Ionized (arterial) 1.17 mmol/L (1.12-1.30); Carboxyhemoglobin (COHb) 0.3 gm% (0.0-3.0); Hemoglobin (Hb) 12.2 g/dL (14.0-18.0); Potassium - ABG Lab 4.36 mmol/L (3.70-5.30); pH, Arterial 7.34 (7.35-7.45)
[2021-09-12 07:09] LABS: CO2 Tension 60.9 mmHg (35.0-45.0)
[2021-09-12 07:10] LABS: ALV-art Gradient 188.625 mmHg (0-20); O2 Tension (PaO2), arterial 56.1 mmHg (80.0-100.0); Puncture Site RRA
[2021-09-12] MEDS ORDERED: Sterile Water 10 ML ONE ×3 (08:02→17:44)
[2021-09-12] MEDS ORDERED: Dexamethasone 4 mg/ml Vial ONE (09:17)
[2021-09-12] MEDS: Enoxaparin Sodium 60 MG/0.6 ML SYRINGE SC SCH ×2 (09:47→21:28)
[2021-09-12] MEDS: Dexamethasone 4 mg/ml Vial SLOW IVP SCH (09:48)
[2021-09-12] MEDS: Ascorbic Acid 500 mg Chewable Tablet PO SCH (09:49)
[2021-09-12] MEDS: Cholecalciferol 1,000 UNITS (25 MCG) TAB PO SCH (09:49)
[2021-09-12] MEDS: Zinc Sulfate 220 MG CAP PO SCH (09:49)
[2021-09-12] MEDS: Furosemide 20 MG TAB PO SCH (09:49)
[2021-09-12] MEDS: FlunisoLIDE 0.025% Nasal Spray 25 ml Bottle EA NARE SCH ×2 (10:10→21:29)
[2021-09-12] MEDS ORDERED: Propofol 1,000 MG/100 ML VIAL IV ONE (11:03)
[2021-09-12] MEDS ORDERED: Vecuronium 10 MG VIAL ONE (17:44)
[2021-09-13] MEDS: Propofol 1,000 MG/100 ML VIAL IV PRN ×8 (00:56→23:46)
[2021-09-13 01:37] LABS: Vancomycin, Trough 16.6 ug/mL
[2021-09-13] MEDS ORDERED: Fentanyl CADD 100 ML ONE (01:37)
[2021-09-13] MEDS: Fentanyl CADD 100 ML IV SCH ×2 (01:39→11:35)
[2021-09-13] MEDS: Lorazepam 2 MG/ML VIAL SLOW IVP PRN ×2 (01:55→07:49)
[2021-09-13] MEDS: VANCOMYCIN 1.75 GM/350 ML BAG 1.75 GM in Premix Bag 1 BAG IVPB SCH ×3 (01:55→17:01)
[2021-09-13] MEDS: Vecuronium 10 MG VIAL IV PRN ×2 (03:51→09:20)
[2021-09-13 04:26] LABS: #Basophils 0.1 thou/uL (0.0-0.2); #Eosinphils 0.3 thou/uL (0.0-0.7); #Lymphocytes 1.1 thou/uL (1.20-3.40); #Monocytes 0.7 thou/uL (0.11-0.59); #Neutrophils 8.2 thou/uL (1.40-6.50); %Basophils 0.6 % (0.0-1.0); %Eosinophils 2.5 % (0.0-10.0); %Lymphocytes 10.3 % (21.0-51.0); %Monocytes 6.6 % (0.0-10.0); %Neutrophils 80.1 % (42.0-75.0); Hemoglobin 11.4 g/dL (14.0-18.0); Mean Corpuscular HGB CONC 33.6 g/dL (32.0-36.0); Mean Corpuscular Hemoglobin 29.1 pg (27.0-31.0); Mean Corpuscular Volume 86.7 fL (78.0-98.0); Mean Platelet Volume 9.6 fL (7.4-10.4); Platelet Count 147 thou/uL (130-400); White Blood Cell (WBC) Count 10.3 thou/uL (4.8-10.8)
[2021-09-13 04:35] LABS: Anion Gap 10 mmol/L (10-20); BUN (Urea Nitrogen) 17 mg/dL (8.4-25.7); Calc. Creatinine Clearance 167 mL/min (70-130); Calcium 8.1 mg/dL (7.8-10.44); Carbon Dioxide 33 mmol/L (22-29); Chloride 100 mmol/L (98-107); Glucose 95 mg/dL (70-105); Sodium 139 mmol/L (136-145)
[2021-09-13] MEDS: Piperacillin/Tazobactam 3.375 GM in Sodium Chloride 0.9% 100 ML IVPB SCH ×3 (05:42→21:05)
[2021-09-13] MEDS: Ascorbic Acid 500 mg Chewable Tablet PO SCH (08:00)
[2021-09-13] MEDS: Acetaminophen 325 MG TAB PO PRN (08:00)
[2021-09-13] MEDS: Furosemide 20 MG TAB PO SCH (08:00)
[2021-09-13] MEDS: Cholecalciferol 1,000 UNITS (25 MCG) TAB PO SCH (08:00)
[2021-09-13] MEDS: Zinc Sulfate 220 MG CAP PO SCH (08:00)
[2021-09-13] MEDS: Enoxaparin Sodium 60 MG/0.6 ML SYRINGE SC SCH ×2 (08:00→19:44)
[2021-09-13] MEDS: FlunisoLIDE 0.025% Nasal Spray 25 ml Bottle EA NARE SCH ×2 (08:02→19:44)
[2021-09-13] MEDS: Dexamethasone 4 mg/ml Vial SLOW IVP SCH (08:02)
[2021-09-13] MEDS: Pantoprazole 40 MG GRANULES PACKET PO SCH (10:15)
[2021-09-14] MEDS ORDERED: Fentanyl CADD 100 ML ONE ×3 (00:06→21:12)
[2021-09-14] MEDS: Fentanyl CADD 100 ML IV SCH ×3 (00:11→21:25)
[2021-09-14] MEDS: VANCOMYCIN 1.75 GM/350 ML BAG 1.75 GM in Premix Bag 1 BAG IVPB SCH (01:13)
[2021-09-14 04:07] LABS: #Eosinphils 0.3 thou/uL (0.0-0.7); #Lymphocytes 1.3 thou/uL (1.20-3.40); #Monocytes 0.4 thou/uL (0.11-0.59); #Neutrophils 7.4 thou/uL (1.40-6.50); %Basophils 0.3 % (0.0-1.0); %Eosinophils 2.8 % (0.0-10.0); %Lymphocytes 13.6 % (21.0-51.0); %Monocytes 4.5 % (0.0-10.0); %Neutrophils 78.8 % (42.0-75.0); Hemoglobin 10.3 g/dL (14.0-18.0); Mean Corpuscular HGB CONC 32.3 g/dL (32.0-36.0); Mean Corpuscular Volume 86.6 fL (78.0-98.0); Mean Platelet Volume 9.8 fL (7.4-10.4); Platelet Count 138 thou/uL (130-400); RBC Distribution Width 13.1 % (11.5-14.5); Red Blood Cell (RBC) Count 3.68 mill/uL (4.70-6.10); White Blood Cell (WBC) Count 9.4 thou/uL (4.8-10.8)
[2021-09-14 04:24] LABS: Anion Gap 10 mmol/L (10-20); BUN (Urea Nitrogen) 18 mg/dL (8.4-25.7); Calc. Creatinine Clearance 189 mL/min (70-130); Calcium 8.1 mg/dL (7.8-10.44); Carbon Dioxide 34 mmol/L (22-29); Chloride 100 mmol/L (98-107); Glucose 86 mg/dL (70-105); Potassium 3.8 mmol/L (3.5-5.1); Sodium 140 mmol/L (136-145)
[2021-09-14] MEDS: Piperacillin/Tazobactam 3.375 GM in Sodium Chloride 0.9% 100 ML IVPB SCH ×3 (05:04→21:02)
[2021-09-14] MEDS: Propofol 1,000 MG/100 ML VIAL IV PRN ×5 (05:04→21:03)
[2021-09-14 07:22] LABS: Actual Bicarbonate (HCO3a) 33.3 mEq/L (22-28); Base Excess (BEa) 8.1 mEq/L (-2.0 to +3.0); CO2 Tension 49.1 mmHg (35.0-45.0); Calcium, Ionized (arterial) 1.14 mmol/L (1.12-1.30); Carboxyhemoglobin (COHb) 0.5 gm% (0.0-3.0); Hemoglobin (Hb) 12.2 g/dL (14.0-18.0); O2 Tension (PaO2), arterial 61.5 mmHg (80.0-100.0); Potassium - ABG Lab 3.49 mmol/L (3.70-5.30); pH, Arterial 7.45 (7.35-7.45)
[2021-09-14 07:25] LABS: ALV-art Gradient 197.975 mmHg (0-20); Puncture Site LRA
[2021-09-14] MEDS: Cholecalciferol 1,000 UNITS (25 MCG) TAB PO SCH (08:28)
[2021-09-14] MEDS: Dexamethasone 4 mg/ml Vial SLOW IVP SCH (08:28)
[2021-09-14] MEDS: Enoxaparin Sodium 60 MG/0.6 ML SYRINGE SC SCH ×2 (08:28→20:09)
[2021-09-14] MEDS: Pantoprazole 40 MG GRANULES PACKET PO SCH (08:28)
[2021-09-14] MEDS: Furosemide 20 MG TAB PO SCH (08:28)
[2021-09-14] MEDS: Ascorbic Acid 500 mg Chewable Tablet PO SCH (08:28)
[2021-09-14] MEDS: Zinc Sulfate 220 MG CAP PO SCH (08:28)
[2021-09-14] MEDS: FlunisoLIDE 0.025% Nasal Spray 25 ml Bottle EA NARE SCH ×2 (09:38→20:09)
[2021-09-14] MEDS ORDERED: Vecuronium 10 MG VIAL ONE (12:13)
[2021-09-14] MEDS: Lorazepam 2 MG/ML VIAL SLOW IVP PRN ×3 (12:18→22:32)
[2021-09-14] MEDS ORDERED: Lidocaine 1% (PF) 30 ML VIAL ONE (12:39)
[2021-09-14] MEDS ORDERED: Vecuronium 10 MG VIAL IVP SCH (13:00)
[2021-09-14] MEDS ORDERED: Lidocaine 1% w/Epinephrine 1:100K 20 ML VIAL ONE (13:01)
[2021-09-14] MEDS: Vecuronium 10 MG VIAL IV PRN ×2 (13:32→22:32)
[2021-09-14 17:07] LABS: Actual Bicarbonate (HCO3a) 35.9 mEq/L (22-28); Base Excess (BEa) 8.3 mEq/L (-2.0 to +3.0); Calcium, Ionized (arterial) 1.09 mmol/L (1.12-1.30); Carboxyhemoglobin (COHb) 0.5 gm% (0.0-3.0); Hemoglobin (Hb) 11.3 g/dL (14.0-18.0); O2 Tension (PaO2), arterial 89.2 mmHg (80.0-100.0); Potassium - ABG Lab 4.11 mmol/L (3.70-5.30); pH, Arterial 7.35 (7.35-7.45)
[2021-09-14 17:08] LABS: CO2 Tension 66.6 mmHg (35.0-45.0)
[2021-09-14 17:09] LABS: Puncture Site RRA
[2021-09-14] MEDS ORDERED: Sterile Water 10 ML ONE (22:24)
[2021-09-15] MEDS: Propofol 1,000 MG/100 ML VIAL IV PRN ×6 (00:37→21:12)
[2021-09-15] MEDS ORDERED: Sterile Water 10 ML ONE (00:51)
[2021-09-15] MEDS: Vecuronium 10 MG VIAL IV PRN (00:53)
[2021-09-15 04:17] LABS: Anion Gap 12 mmol/L (10-20); BUN (Urea Nitrogen) 16 mg/dL (8.4-25.7); Calc. Creatinine Clearance 201 mL/min (70-130); Carbon Dioxide 37 mmol/L (22-29); Chloride 97 mmol/L (98-107); Glucose 73 mg/dL (70-105); Potassium 3.8 mmol/L (3.5-5.1); Sodium 142 mmol/L (136-145)
[2021-09-15 04:58] LABS: #Eosinphils 0.3 thou/uL (0.0-0.7); #Lymphocytes 1.2 thou/uL (1.20-3.40); #Monocytes 0.5 thou/uL (0.11-0.59); #Neutrophils 6.8 thou/uL (1.40-6.50); %Basophils 0.1 % (0.0-1.0); %Eosinophils 3.3 % (0.0-10.0); %Lymphocytes 13.6 % (21.0-51.0); %Monocytes 5.6 % (0.0-10.0); %Neutrophils 77.4 % (42.0-75.0); Hemoglobin 10.9 g/dL (14.0-18.0); Hypochromia SLIGHT = 6-15 cells (100X) (0-5/hpf); MDiff Complete? YES; Mean Corpuscular HGB CONC 31.7 g/dL (32.0-36.0); Mean Corpuscular Hemoglobin 27.7 pg (27.0-31.0); Mean Corpuscular Volume 87.4 fL (78.0-98.0); Mean Platelet Volume 9.6 fL (7.4-10.4); Platelet Count 117 thou/uL (130-400); Platelet Morphology Comment Appears Decreased; RBC Distribution Width 13.3 % (11.5-14.5); Red Blood Cell (RBC) Count 3.92 mill/uL (4.70-6.10); White Blood Cell (WBC) Count 8.7 thou/uL (4.8-10.8)
[2021-09-15] MEDS: Piperacillin/Tazobactam 3.375 GM in Sodium Chloride 0.9% 100 ML IVPB SCH ×3 (05:27→21:19)
[2021-09-15 07:40] LABS: Actual Bicarbonate (HCO3a) 35.7 mEq/L (22-28); Base Excess (BEa) 9.9 mEq/L (-2.0 to +3.0); CO2 Tension 55.2 mmHg (35.0-45.0); Calcium, Ionized (arterial) 1.12 mmol/L (1.12-1.30); Carboxyhemoglobin (COHb) 0.2 gm% (0.0-3.0); Hemoglobin (Hb) 10.5 g/dL (14.0-18.0); O2 Tension (PaO2), arterial 67.4 mmHg (80.0-100.0); Potassium - ABG Lab 3.37 mmol/L (3.70-5.30); pH, Arterial 7.43 (7.35-7.45)
[2021-09-15 07:41] LABS: Puncture Site LRA
[2021-09-15] MEDS ORDERED: Fentanyl CADD 100 ML ONE ×2 (08:43→18:30)
[2021-09-15] MEDS: Fentanyl CADD 100 ML IV SCH ×2 (09:05→18:49)
[2021-09-15] MEDS: FlunisoLIDE 0.025% Nasal Spray 25 ml Bottle EA NARE SCH ×2 (09:07→20:13)
[2021-09-15] MEDS: Lorazepam 2 MG/ML VIAL SLOW IVP PRN (09:07)
[2021-09-15] MEDS: Enoxaparin Sodium 60 MG/0.6 ML SYRINGE SC SCH ×2 (09:07→20:11)
[2021-09-15] MEDS: Cholecalciferol 1,000 UNITS (25 MCG) TAB PO SCH (09:07)
[2021-09-15] MEDS: Dexamethasone 4 mg/ml Vial SLOW IVP SCH (09:07)
[2021-09-15] MEDS: Ascorbic Acid 500 mg Chewable Tablet PO SCH (09:08)
[2021-09-15] MEDS: Pantoprazole 40 MG GRANULES PACKET PO SCH (09:09)
[2021-09-15] MEDS: Zinc Sulfate 220 MG CAP PO SCH (09:09)
[2021-09-15] MEDS: Furosemide 20 MG TAB PO SCH (09:09)
[2021-09-15] MEDS: Acetaminophen 325 MG TAB PO PRN (12:58)
[2021-09-16] MEDS: Propofol 1,000 MG/100 ML VIAL IV PRN ×6 (00:04→18:07)
[2021-09-16] MEDS ORDERED: Sterile Water 10 ML ONE ×3 (00:16→02:45)
[2021-09-16] MEDS: Vecuronium 10 MG VIAL IV PRN ×4 (00:17→08:24)
[2021-09-16] MEDS: Lorazepam 2 MG/ML VIAL SLOW IVP PRN ×4 (00:17→08:25)
[2021-09-16] MEDS: Acetaminophen 325 MG TAB PO PRN ×3 (01:04→08:24)
[2021-09-16 02:58] LABS: Actual Bicarbonate (HCO3a) 37.4 mEq/L (22-28); Base Excess (BEa) 10.2 mEq/L (-2.0 to +3.0); CO2 Tension 59.9 mmHg (35.0-45.0); Calcium, Ionized (arterial) 1.07 mmol/L (1.12-1.30); Carboxyhemoglobin (COHb) 0.9 gm% (0.0-3.0); O2 Tension (PaO2), arterial 68.5 mmHg (80.0-100.0); pH, Arterial 7.41 (7.35-7.45)
[2021-09-16 02:59] LABS: ALV-art Gradient 320.075 mmHg (0-20); Puncture Site LR
[2021-09-16] MEDS ORDERED: Furosemide 40 MG/4 ML VIAL SLOW IVP SCH (04:15)
[2021-09-16] MEDS ORDERED: Fentanyl CADD 100 ML ONE ×3 (04:17→23:50)
[2021-09-16] MEDS: Fentanyl CADD 100 ML IV SCH ×2 (04:23→13:58)
[2021-09-16 04:46] LABS: Lactic Acid 1.1 mmol/L (0.5-2.2)
[2021-09-16 05:08] LABS: Anion Gap 18 mmol/L (10-20); BUN (Urea Nitrogen) 16 mg/dL (8.4-25.7); Calc. Creatinine Clearance 179 mL/min (70-130); Calcium 7.9 mg/dL (7.8-10.44); Carbon Dioxide 30 mmol/L (22-29); Chloride 92 mmol/L (98-107); Glucose 104 mg/dL (70-105); Potassium 4.3 mmol/L (3.5-5.1); Sodium 136 mmol/L (136-145)
[2021-09-16 07:29] LABS: #Eosinphils 0.3 thou/uL (0.0-0.7); #Lymphocytes 0.8 thou/uL (1.20-3.40); #Monocytes 0.6 thou/uL (0.11-0.59); %Basophils 0.3 % (0.0-1.0); %Lymphocytes 7.1 % (21.0-51.0); %Monocytes 5.1 % (0.0-10.0); %Neutrophils 84.6 % (42.0-75.0); Hemoglobin 11.4 g/dL (14.0-18.0); Mean Corpuscular HGB CONC 32.6 g/dL (32.0-36.0); Mean Corpuscular Hemoglobin 28.5 pg (27.0-31.0); Mean Corpuscular Volume 87.4 fL (78.0-98.0); Mean Platelet Volume 9.9 fL (7.4-10.4); Platelet Count 100 thou/uL (130-400); RBC Distribution Width 13.8 % (11.5-14.5); White Blood Cell (WBC) Count 11.8 thou/uL (4.8-10.8)
[2021-09-16] MEDS ORDERED: Norepinephrine 8 MG/0.9% NS 250 ML IVPB SCH (08:15)
[2021-09-16] MEDS: Dexamethasone 4 mg/ml Vial SLOW IVP SCH (08:22)
[2021-09-16] MEDS: Enoxaparin Sodium 60 MG/0.6 ML SYRINGE SC SCH ×2 (08:24→20:17)
[2021-09-16] MEDS: Cholecalciferol 1,000 UNITS (25 MCG) TAB PO SCH (08:24)
[2021-09-16] MEDS: Pantoprazole 40 MG GRANULES PACKET PO SCH (08:25)
[2021-09-16] MEDS: Ascorbic Acid 500 mg Chewable Tablet PO SCH (08:25)
[2021-09-16] MEDS: Zinc Sulfate 220 MG CAP PO SCH (08:25)
[2021-09-16] MEDS: Furosemide 20 MG TAB PO SCH (08:26)
[2021-09-16] MEDS: FlunisoLIDE 0.025% Nasal Spray 25 ml Bottle EA NARE SCH ×2 (08:26→20:18)
[2021-09-16 09:08] LABS: Troponin I 0.028 ng/mL (< 0.028)
[2021-09-17] MEDS: VANCOMYCIN 1.75 GM/350 ML BAG 1.75 GM in Premix Bag 1 BAG IVPB SCH ×3 (00:01→16:47)
[2021-09-17] MEDS: Fentanyl CADD 100 ML IV SCH ×3 (00:04→21:10)
[2021-09-17] MEDS: Propofol 1,000 MG/100 ML VIAL IV PRN ×2 (01:27→05:19)
[2021-09-17 03:45] LABS: #Basophils 0.1 thou/uL (0.0-0.2); #Eosinphils 0.4 thou/uL (0.0-0.7); #Lymphocytes 1.3 thou/uL (1.20-3.40); #Monocytes 0.4 thou/uL (0.11-0.59); #Neutrophils 6.5 thou/uL (1.40-6.50); %Basophils 0.7 % (0.0-1.0); %Lymphocytes 14.7 % (21.0-51.0); %Neutrophils 74.6 % (42.0-75.0); Hemoglobin 10.9 g/dL (14.0-18.0); Mean Corpuscular HGB CONC 32.9 g/dL (32.0-36.0); Mean Corpuscular Hemoglobin 28.8 pg (27.0-31.0); Mean Corpuscular Volume 87.8 fL (78.0-98.0); Mean Platelet Volume 9.4 fL (7.4-10.4); Platelet Count 103 thou/uL (130-400); Red Blood Cell (RBC) Count 3.76 mill/uL (4.70-6.10); White Blood Cell (WBC) Count 8.7 thou/uL (4.8-10.8)
[2021-09-17 04:10] LABS: BUN (Urea Nitrogen) 15 mg/dL (8.4-25.7); Calc. Creatinine Clearance 225 mL/min (70-130); Glucose 95 mg/dL (70-105)
[2021-09-17 04:19] LABS: Anion Gap 20 mmol/L (10-20); Carbon Dioxide 31 mmol/L (22-29); Chloride 91 mmol/L (98-107); Potassium 3.4 mmol/L (3.5-5.1); Sodium 139 mmol/L (136-145)
[2021-09-17] MEDS: Pantoprazole 40 MG GRANULES PACKET PO SCH (08:42)
[2021-09-17] MEDS: Dexamethasone 4 mg/ml Vial SLOW IVP SCH (08:42)
[2021-09-17] MEDS: Lorazepam 2 MG/ML VIAL SLOW IVP PRN (08:42)
[2021-09-17] MEDS: Ascorbic Acid 500 mg Chewable Tablet PO SCH (08:43)
[2021-09-17] MEDS: Zinc Sulfate 220 MG CAP PO SCH (08:43)
[2021-09-17] MEDS: Enoxaparin Sodium 60 MG/0.6 ML SYRINGE SC SCH ×2 (08:43→21:10)
[2021-09-17] MEDS: Cholecalciferol 1,000 UNITS (25 MCG) TAB PO SCH (10:06)
[2021-09-17] MEDS: FlunisoLIDE 0.025% Nasal Spray 25 ml Bottle EA NARE SCH ×2 (10:06→21:10)
[2021-09-17] MEDS ORDERED: Potassium Bicarbonate/Cit Ac 20 MEQ TAB PER TUBE SCH (10:30)
[2021-09-17] MEDS ORDERED: Fentanyl CADD 100 ML ONE ×2 (10:44→21:07)
[2021-09-17] MEDS: Acetaminophen 325 MG TAB PO PRN (21:12)
[2021-09-17 23:19] LABS: Vancomycin, Trough 16.3 ug/mL
[2021-09-18] MEDS: VANCOMYCIN 1.75 GM/350 ML BAG 1.75 GM in Premix Bag 1 BAG IVPB SCH ×4 (00:34→23:40)
[2021-09-18] MEDS: Lorazepam 2 MG/ML VIAL SLOW IVP PRN ×6 (04:02→21:36)
[2021-09-18 04:08] LABS: #Basophils 0.1 thou/uL (0.0-0.2); #Eosinphils 0.5 thou/uL (0.0-0.7); #Lymphocytes 1.6 thou/uL (1.20-3.40); #Monocytes 0.6 thou/uL (0.11-0.59); #Neutrophils 5.9 thou/uL (1.40-6.50); %Basophils 0.8 % (0.0-1.0); %Eosinophils 5.7 % (0.0-10.0); %Neutrophils 68.5 % (42.0-75.0); Hemoglobin 10.8 g/dL (14.0-18.0); Mean Corpuscular HGB CONC 32.6 g/dL (32.0-36.0); Mean Corpuscular Hemoglobin 28.5 pg (27.0-31.0); Mean Corpuscular Volume 87.6 fL (78.0-98.0); Mean Platelet Volume 9.9 fL (7.4-10.4); Platelet Count 135 thou/uL (130-400); RBC Distribution Width 13.9 % (11.5-14.5); Red Blood Cell (RBC) Count 3.81 mill/uL (4.70-6.10); White Blood Cell (WBC) Count 8.7 thou/uL (4.8-10.8)
[2021-09-18 04:29] LABS: Anion Gap 12 mmol/L (10-20); BUN (Urea Nitrogen) 16 mg/dL (8.4-25.7); Calc. Creatinine Clearance 218 mL/min (70-130); Calcium 8.4 mg/dL (7.8-10.44); Carbon Dioxide 37 mmol/L (22-29); Chloride 95 mmol/L (98-107); Glucose 96 mg/dL (70-105); Potassium 3.8 mmol/L (3.5-5.1); Sodium 140 mmol/L (136-145)
[2021-09-18] MEDS: Acetaminophen 325 MG TAB PO PRN (05:43)
[2021-09-18] MEDS ORDERED: Fentanyl CADD 100 ML ONE ×2 (06:42→19:30)
[2021-09-18] MEDS: Fentanyl CADD 100 ML IV SCH (06:48)
[2021-09-18] MEDS: Pantoprazole 40 MG GRANULES PACKET PO SCH (09:11)
[2021-09-18] MEDS: Zinc Sulfate 220 MG CAP PO SCH (09:11)
[2021-09-18] MEDS: Dexamethasone 4 mg/ml Vial SLOW IVP SCH (09:11)
[2021-09-18] MEDS: Enoxaparin Sodium 60 MG/0.6 ML SYRINGE SC SCH ×2 (09:11→20:27)
[2021-09-18] MEDS: Ascorbic Acid 500 mg Chewable Tablet PO SCH (09:11)
[2021-09-18] MEDS: FlunisoLIDE 0.025% Nasal Spray 25 ml Bottle EA NARE SCH ×2 (09:12→20:28)
[2021-09-18] MEDS: Cholecalciferol 1,000 UNITS (25 MCG) TAB PO SCH (09:20)
[2021-09-18] MEDS ORDERED: Vancomycin HCl 1.75 GM in Sodium Chloride 0.9% 500 ML IVPB SCH (23:59)
[2021-09-19] MEDS: Lorazepam 2 MG/ML VIAL SLOW IVP PRN ×5 (01:51→20:52)
[2021-09-19 04:17] LABS: #Basophils 0.1 thou/uL (0.0-0.2); #Eosinphils 0.4 thou/uL (0.0-0.7); #Lymphocytes 2.2 thou/uL (1.20-3.40); #Monocytes 0.8 thou/uL (0.11-0.59); #Neutrophils 5.7 thou/uL (1.40-6.50); %Basophils 0.6 % (0.0-1.0); %Eosinophils 4.8 % (0.0-10.0); %Lymphocytes 23.8 % (21.0-51.0); %Monocytes 8.7 % (0.0-10.0); Hemoglobin 10.2 g/dL (14.0-18.0); Mean Corpuscular HGB CONC 33.1 g/dL (32.0-36.0); Mean Corpuscular Hemoglobin 28.5 pg (27.0-31.0); Mean Platelet Volume 9.5 fL (7.4-10.4); Platelet Count 193 thou/uL (130-400); Red Blood Cell (RBC) Count 3.59 mill/uL (4.70-6.10); White Blood Cell (WBC) Count 9.1 thou/uL (4.8-10.8)
[2021-09-19 04:47] LABS: Anion Gap 15 mmol/L (10-20); BUN (Urea Nitrogen) 17 mg/dL (8.4-25.7); Calc. Creatinine Clearance 212 mL/min (70-130); Calcium 8.2 mg/dL (7.8-10.44); Carbon Dioxide 30 mmol/L (22-29); Chloride 96 mmol/L (98-107); Glucose 100 mg/dL (70-105); Sodium 137 mmol/L (136-145)
[2021-09-19] MEDS ORDERED: Fentanyl CADD 100 ML ONE ×3 (06:12→21:15)
[2021-09-19] MEDS: VANCOMYCIN 1.75 GM/350 ML BAG 1.75 GM in Premix Bag 1 BAG IVPB SCH ×2 (08:23→15:45)
[2021-09-19] MEDS: Polyethylene Glycol 3350 17 GM Packet PER TUBE SCH (08:27)
[2021-09-19] MEDS: Enoxaparin Sodium 40 MG/0.4 ML SYRINGE SC SCH ×2 (08:27→21:33)
[2021-09-19] MEDS: Ascorbic Acid 500 mg Chewable Tablet PO SCH (08:27)
[2021-09-19] MEDS: Senokot S 8.6-50 MG TAB PO SCH ×2 (08:27→21:33)
[2021-09-19] MEDS: Dexamethasone 4 mg/ml Vial SLOW IVP SCH (08:30)
[2021-09-19] MEDS: Cholecalciferol 1,000 UNITS (25 MCG) TAB PO SCH (08:30)
[2021-09-19] MEDS: Zinc Sulfate 220 MG CAP PO SCH (08:31)
[2021-09-19] MEDS: FlunisoLIDE 0.025% Nasal Spray 25 ml Bottle EA NARE SCH ×2 (08:45→21:33)
[2021-09-19] MEDS: Pantoprazole 40 MG GRANULES PACKET PO SCH (08:45)
[2021-09-19] MEDS: Morphine 4 MG/ML VIAL SLOW IVP PRN (09:27)
[2021-09-19] MEDS: Propofol 1,000 MG/100 ML VIAL IV PRN ×3 (10:45→22:35)
[2021-09-19] MEDS: Dexmedetomidine 1,000 MCG in Sodium Chloride 0.9% 250 ML 240 ML IVPB SCH (17:07)
[2021-09-20] MEDS: VANCOMYCIN 1.75 GM/350 ML BAG 1.75 GM in Premix Bag 1 BAG IVPB SCH ×4 (00:14→23:49)
[2021-09-20] MEDS: Propofol 1,000 MG/100 ML VIAL IV PRN ×4 (03:55→20:22)
[2021-09-20 04:07] LABS: #Eosinphils 0.3 thou/uL (0.0-0.7); #Neutrophils 6.1 thou/uL (1.40-6.50); %Basophils 0.4 % (0.0-1.0); %Eosinophils 3.5 % (0.0-10.0); %Lymphocytes 21.4 % (21.0-51.0); %Monocytes 10.6 % (0.0-10.0); Hemoglobin 10.4 g/dL (14.0-18.0); Mean Corpuscular HGB CONC 33.8 g/dL (32.0-36.0); Mean Corpuscular Hemoglobin 28.9 pg (27.0-31.0); Mean Corpuscular Volume 85.5 fL (78.0-98.0); Mean Platelet Volume 9.3 fL (7.4-10.4); Platelet Count 214 thou/uL (130-400); RBC Distribution Width 14.3 % (11.5-14.5); Red Blood Cell (RBC) Count 3.59 mill/uL (4.70-6.10); White Blood Cell (WBC) Count 9.5 thou/uL (4.8-10.8)
[2021-09-20 04:25] LABS: Anion Gap 14 mmol/L (10-20); BUN (Urea Nitrogen) 16 mg/dL (8.4-25.7); Calc. Creatinine Clearance 219 mL/min (70-130); Calcium 8.5 mg/dL (7.8-10.44); Carbon Dioxide 27 mmol/L (22-29); Chloride 101 mmol/L (98-107); Glucose 109 mg/dL (70-105); Potassium 4.2 mmol/L (3.5-5.1); Sodium 138 mmol/L (136-145)
[2021-09-20 07:18] LABS: Actual Bicarbonate (HCO3a) 30.7 mEq/L (22-28); Base Excess (BEa) 6.6 mEq/L (-2.0 to +3.0); CO2 Tension 42.4 mmHg (35.0-45.0); Calcium, Ionized (arterial) 1.15 mmol/L (1.12-1.30); Carboxyhemoglobin (COHb) 0.9 gm% (0.0-3.0); Hemoglobin (Hb) 10.8 g/dL (14.0-18.0); O2 Tension (PaO2), arterial 67.4 mmHg (80.0-100.0); Potassium - ABG Lab 3.84 mmol/L (3.70-5.30); Puncture Site LRA; pH, Arterial 7.48 (7.35-7.45)
[2021-09-20] MEDS: Enoxaparin Sodium 40 MG/0.4 ML SYRINGE SC SCH ×2 (08:08→20:14)
[2021-09-20] MEDS: Polyethylene Glycol 3350 17 GM Packet PER TUBE SCH (08:08)
[2021-09-20] MEDS: Pantoprazole 40 MG GRANULES PACKET PO SCH (08:08)
[2021-09-20] MEDS: Zinc Sulfate 220 MG CAP PO SCH (08:09)
[2021-09-20] MEDS: Cholecalciferol 1,000 UNITS (25 MCG) TAB PO SCH (08:09)
[2021-09-20] MEDS: Senokot S 8.6-50 MG TAB PO SCH ×2 (08:09→20:14)
[2021-09-20] MEDS: FlunisoLIDE 0.025% Nasal Spray 25 ml Bottle EA NARE SCH ×2 (08:09→20:14)
[2021-09-20] MEDS: Ascorbic Acid 500 mg Chewable Tablet PO SCH (08:09)
[2021-09-20] MEDS: Dexamethasone 4 mg/ml Vial SLOW IVP SCH (08:09)
[2021-09-20] MEDS: Lorazepam 2 MG/ML VIAL SLOW IVP PRN ×3 (08:29→15:37)
[2021-09-20] MEDS: Morphine 4 MG/ML VIAL SLOW IVP PRN ×2 (08:29→15:37)
[2021-09-20] MEDS ORDERED: Fentanyl CADD 100 ML ONE (15:07)
[2021-09-20] MEDS: Fentanyl CADD 100 ML IV SCH (15:21)
[2021-09-20] MEDS: Vecuronium 10 MG VIAL IV PRN (15:40)
[2021-09-20] MEDS: Dexmedetomidine 1,000 MCG in Sodium Chloride 0.9% 250 ML 240 ML IVPB SCH (23:47)
[2021-09-21] MEDS: Propofol 1,000 MG/100 ML VIAL IV PRN ×5 (02:30→23:09)
[2021-09-21 04:21] LABS: Anion Gap 15 mmol/L (10-20); BUN (Urea Nitrogen) 16 mg/dL (8.4-25.7); Calc. Creatinine Clearance 227 mL/min (70-130); Calcium 8.3 mg/dL (7.8-10.44); Carbon Dioxide 25 mmol/L (22-29); Chloride 104 mmol/L (98-107); Glucose 92 mg/dL (70-105); Potassium 4.8 mmol/L (3.5-5.1); Sodium 139 mmol/L (136-145)
[2021-09-21 05:58] LABS: #Eosinphils 0.3 thou/uL (0.0-0.7); #Lymphocytes 2.1 thou/uL (1.20-3.40); #Monocytes 0.8 thou/uL (0.11-0.59); #Neutrophils 5.2 thou/uL (1.40-6.50); %Basophils 0.2 % (0.0-1.0); %Eosinophils 3.4 % (0.0-10.0); %Lymphocytes 24.9 % (21.0-51.0); %Monocytes 9.3 % (0.0-10.0); %Neutrophils 62.3 % (42.0-75.0); Hemoglobin 10.4 g/dL (14.0-18.0); Mean Corpuscular Hemoglobin 26.9 pg (27.0-31.0); Mean Corpuscular Volume 86.7 fL (78.0-98.0); Mean Platelet Volume 10.3 fL (7.4-10.4); Platelet Count 256 thou/uL (130-400); RBC Distribution Width 14.8 % (11.5-14.5); Red Blood Cell (RBC) Count 3.89 mill/uL (4.70-6.10); White Blood Cell (WBC) Count 8.3 thou/uL (4.8-10.8)
[2021-09-21 07:56] LABS: Actual Bicarbonate (HCO3a) 27.2 mEq/L (22-28); Base Excess (BEa) 3.9 mEq/L (-2.0 to +3.0); CO2 Tension 35.9 mmHg (35.0-45.0); Calcium, Ionized (arterial) 1.17 mmol/L (1.12-1.30); Carboxyhemoglobin (COHb) 0.9 gm% (0.0-3.0); Hemoglobin (Hb) 10.6 g/dL (14.0-18.0); Potassium - ABG Lab 3.79 mmol/L (3.70-5.30)
[2021-09-21 07:57] LABS: O2 Tension (PaO2), arterial 46.6 mmHg (80.0-100.0)
[2021-09-21 07:58] LABS: ALV-art Gradient 193.725 mmHg (0-20); Puncture Site RRA
[2021-09-21] MEDS: Vecuronium 10 MG VIAL IV PRN ×3 (08:37→12:56)
[2021-09-21] MEDS: Dexamethasone 4 mg/ml Vial SLOW IVP SCH (08:39)
[2021-09-21] MEDS: VANCOMYCIN 1.75 GM/350 ML BAG 1.75 GM in Premix Bag 1 BAG IVPB SCH ×2 (08:39→16:22)
[2021-09-21] MEDS: Zinc Sulfate 220 MG CAP PO SCH (08:40)
[2021-09-21] MEDS: Enoxaparin Sodium 40 MG/0.4 ML SYRINGE SC SCH ×2 (08:40→20:05)
[2021-09-21] MEDS: Pantoprazole 40 MG GRANULES PACKET PO SCH (08:40)
[2021-09-21] MEDS: Polyethylene Glycol 3350 17 GM Packet PER TUBE SCH (08:40)
[2021-09-21] MEDS: Ascorbic Acid 500 mg Chewable Tablet PO SCH (08:40)
[2021-09-21] MEDS: Senokot S 8.6-50 MG TAB PO SCH ×2 (08:41→20:05)
[2021-09-21] MEDS: Cholecalciferol 1,000 UNITS (25 MCG) TAB PO SCH (08:41)
[2021-09-21] MEDS: FlunisoLIDE 0.025% Nasal Spray 25 ml Bottle EA NARE SCH ×2 (08:41→20:05)
[2021-09-21] MEDS ORDERED: Fentanyl CADD 100 ML ONE (09:23)
[2021-09-21] MEDS: Fentanyl CADD 100 ML IV SCH (09:34)
[2021-09-21] MEDS: Morphine 4 MG/ML VIAL SLOW IVP PRN (10:10)
[2021-09-21] MEDS: Lorazepam 2 MG/ML VIAL SLOW IVP PRN ×3 (10:10→19:22)
[2021-09-21] MEDS: Dexmedetomidine 1,000 MCG in Sodium Chloride 0.9% 250 ML 240 ML IVPB SCH (14:53)
[2021-09-21] MEDS ORDERED: Sterile Water 0 ML ONE (19:25)
[2021-09-21 23:53] LABS: Vancomycin, Trough 19.4 ug/mL
[2021-09-22] MEDS: VANCOMYCIN 1.75 GM/350 ML BAG 1.75 GM in Premix Bag 1 BAG IVPB SCH ×3 (00:05→17:00)
[2021-09-22] MEDS ORDERED: Fentanyl CADD 100 ML ONE ×2 (02:26→18:45)
[2021-09-22] MEDS: Fentanyl CADD 100 ML IV SCH ×2 (02:29→18:48)
[2021-09-22] MEDS: Propofol 1,000 MG/100 ML VIAL IV PRN ×4 (03:43→18:49)
[2021-09-22 04:38] LABS: Anion Gap 12 mmol/L (10-20); BUN (Urea Nitrogen) 19 mg/dL (8.4-25.7); Calc. Creatinine Clearance 216 mL/min (70-130); Calcium 8.6 mg/dL (7.8-10.44); Carbon Dioxide 31 mmol/L (22-29); Chloride 101 mmol/L (98-107); Glucose 91 mg/dL (70-105); Potassium 4.4 mmol/L (3.5-5.1); Sodium 140 mmol/L (136-145)
[2021-09-22 06:44] LABS: Band 19 % (5-11); Eosinophils 3 % (0-10); Hemoglobin 9.9 g/dL (14.0-18.0); Lymphocytes 34 % (21-51); MDiff Complete? YES; Mean Corpuscular HGB CONC 33.3 g/dL (32.0-36.0); Mean Corpuscular Hemoglobin 29.1 pg (27.0-31.0); Mean Corpuscular Volume 87.3 fL (78.0-98.0); Mean Platelet Volume 9.4 fL (7.4-10.4); Monocytes 3 % (0-10); Neutrophil 41 % (42-75); Nucleated RBC 1 % (0); Platelet Count 267 thou/uL (130-400); RBC Distribution Width 14.6 % (11.5-14.5); Red Blood Cell (RBC) Count 3.41 mill/uL (4.70-6.10); White Blood Cell (WBC) Count 7.2 thou/uL (4.8-10.8)
[2021-09-22] MEDS: Lorazepam 2 MG/ML VIAL SLOW IVP PRN ×3 (07:27→21:43)
[2021-09-22] MEDS: Morphine 4 MG/ML VIAL SLOW IVP PRN (07:27)
[2021-09-22 08:08] LABS: Actual Bicarbonate (HCO3a) 28.4 mEq/L (22-28); CO2 Tension 37.2 mmHg (35.0-45.0); Calcium, Ionized (arterial) 1.13 mmol/L (1.12-1.30); Carboxyhemoglobin (COHb) 1.2 gm% (0.0-3.0); Hemoglobin (Hb) 10.5 g/dL (14.0-18.0); Potassium - ABG Lab 3.93 mmol/L (3.70-5.30)
[2021-09-22 08:23] LABS: Puncture Site RRA
[2021-09-22] MEDS: Ascorbic Acid 500 mg Chewable Tablet PO SCH (08:36)
[2021-09-22] MEDS: Pantoprazole 40 MG GRANULES PACKET PO SCH (08:36)
[2021-09-22] MEDS: Enoxaparin Sodium 40 MG/0.4 ML SYRINGE SC SCH ×2 (08:36→20:05)
[2021-09-22] MEDS: Dexamethasone 4 mg/ml Vial SLOW IVP SCH (08:36)
[2021-09-22] MEDS: Polyethylene Glycol 3350 17 GM Packet PER TUBE SCH (08:37)
[2021-09-22] MEDS: Senokot S 8.6-50 MG TAB PO SCH ×2 (08:37→20:06)
[2021-09-22] MEDS: FlunisoLIDE 0.025% Nasal Spray 25 ml Bottle EA NARE SCH ×2 (08:37→20:06)
[2021-09-22] MEDS: Cholecalciferol 1,000 UNITS (25 MCG) TAB PO SCH (08:38)
[2021-09-22] MEDS: Zinc Sulfate 220 MG CAP PO SCH (08:38)
[2021-09-22] MEDS: Vecuronium 10 MG VIAL IV PRN ×2 (11:57→19:30)
[2021-09-22] MEDS: Acetaminophen 325 MG TAB PO PRN (21:44)
[2021-09-23] MEDS: Propofol 1,000 MG/100 ML VIAL IV PRN ×4 (00:04→19:46)
[2021-09-23] MEDS: Dexmedetomidine 1,000 MCG in Sodium Chloride 0.9% 250 ML 240 ML IVPB SCH ×2 (00:04→16:03)
[2021-09-23] MEDS: VANCOMYCIN 1.75 GM/350 ML BAG 1.75 GM in Premix Bag 1 BAG IVPB SCH (00:09)
[2021-09-23 04:15] LABS: #Eosinphils 0.3 thou/uL (0.0-0.7); #Lymphocytes 1.8 thou/uL (1.20-3.40); #Monocytes 0.7 thou/uL (0.11-0.59); %Basophils 0.4 % (0.0-1.0); %Eosinophils 3.2 % (0.0-10.0); %Lymphocytes 22.7 % (21.0-51.0); %Monocytes 9.3 % (0.0-10.0); %Neutrophils 64.4 % (42.0-75.0); Hemoglobin 9.9 g/dL (14.0-18.0); Mean Corpuscular HGB CONC 33.5 g/dL (32.0-36.0); Mean Corpuscular Hemoglobin 29.1 pg (27.0-31.0); Mean Corpuscular Volume 86.8 fL (78.0-98.0); Mean Platelet Volume 9.3 fL (7.4-10.4); Platelet Count 285 thou/uL (130-400); Red Blood Cell (RBC) Count 3.41 mill/uL (4.70-6.10); White Blood Cell (WBC) Count 7.8 thou/uL (4.8-10.8)
[2021-09-23 04:18] LABS: Anion Gap 11 mmol/L (10-20); BUN (Urea Nitrogen) 14 mg/dL (8.4-25.7); Calc. Creatinine Clearance 216 mL/min (70-130); Calcium 8.7 mg/dL (7.8-10.44); Carbon Dioxide 31 mmol/L (22-29); Chloride 101 mmol/L (98-107); Glucose 82 mg/dL (70-105); Potassium 3.9 mmol/L (3.5-5.1); Sodium 139 mmol/L (136-145)
[2021-09-23 07:29] LABS: Actual Bicarbonate (HCO3a) 27.7 mEq/L (22-28); Base Excess (BEa) 4.1 mEq/L (-2.0 to +3.0); CO2 Tension 37.5 mmHg (35.0-45.0); Calcium, Ionized (arterial) 1.18 mmol/L (1.12-1.30); Carboxyhemoglobin (COHb) 0.9 gm% (0.0-3.0); Hemoglobin (Hb) 10.6 g/dL (14.0-18.0); Potassium - ABG Lab 3.65 mmol/L (3.70-5.30); pH, Arterial 7.49 (7.35-7.45)
[2021-09-23 07:31] LABS: ALV-art Gradient 189.125 mmHg (0-20); O2 Tension (PaO2), arterial 49.2 mmHg (80.0-100.0); Puncture Site RBA
[2021-09-23] MEDS ORDERED: Sterile Water 10 ML ONE ×4 (09:26→15:59)
[2021-09-23] MEDS: Enoxaparin Sodium 40 MG/0.4 ML SYRINGE SC SCH ×2 (09:29→20:45)
[2021-09-23] MEDS: FlunisoLIDE 0.025% Nasal Spray 25 ml Bottle EA NARE SCH ×2 (09:29→20:46)
[2021-09-23] MEDS: Polyethylene Glycol 3350 17 GM Packet PER TUBE SCH (09:29)
[2021-09-23] MEDS: Lorazepam 2 MG/ML VIAL SLOW IVP PRN ×4 (09:30→16:03)
[2021-09-23] MEDS: Dexamethasone 4 mg/ml Vial SLOW IVP SCH (09:30)
[2021-09-23] MEDS: Ascorbic Acid 500 mg Chewable Tablet PO SCH (09:31)
[2021-09-23] MEDS: Zinc Sulfate 220 MG CAP PO SCH (09:31)
[2021-09-23] MEDS: Pantoprazole 40 MG GRANULES PACKET PO SCH (09:32)
[2021-09-23] MEDS: Cholecalciferol 1,000 UNITS (25 MCG) TAB PO SCH (09:32)
[2021-09-23] MEDS: Vecuronium 10 MG VIAL IV PRN ×4 (09:32→16:03)
[2021-09-23] MEDS: Senokot S 8.6-50 MG TAB PO SCH ×2 (09:32→20:46)
[2021-09-23] MEDS: Acetaminophen 325 MG TAB PO PRN (10:28)
[2021-09-23] MEDS ORDERED: Fentanyl CADD 100 ML ONE (11:45)
[2021-09-23] MEDS: Fentanyl CADD 100 ML IV SCH (11:46)
[2021-09-24] MEDS: Acetaminophen 325 MG TAB PO PRN ×4 (00:18→23:46)
[2021-09-24 04:05] LABS: #Eosinphils 0.1 thou/uL (0.0-0.7); #Monocytes 0.6 thou/uL (0.11-0.59); #Neutrophils 5.1 thou/uL (1.40-6.50); %Basophils 0.3 % (0.0-1.0); %Eosinophils 1.4 % (0.0-10.0); %Lymphocytes 25.6 % (21.0-51.0); %Monocytes 7.4 % (0.0-10.0); %Neutrophils 65.3 % (42.0-75.0); Hemoglobin 10.4 g/dL (14.0-18.0); Mean Corpuscular HGB CONC 33.3 g/dL (32.0-36.0); Mean Corpuscular Hemoglobin 28.7 pg (27.0-31.0); Mean Corpuscular Volume 86.2 fL (78.0-98.0); Mean Platelet Volume 9.3 fL (7.4-10.4); Platelet Count 300 thou/uL (130-400); Red Blood Cell (RBC) Count 3.63 mill/uL (4.70-6.10); White Blood Cell (WBC) Count 7.8 thou/uL (4.8-10.8)
[2021-09-24 04:16] LABS: Anion Gap 14 mmol/L (10-20); BUN (Urea Nitrogen) 14 mg/dL (8.4-25.7); Calc. Creatinine Clearance 225 mL/min (70-130); Calcium 8.6 mg/dL (7.8-10.44); Carbon Dioxide 31 mmol/L (22-29); Chloride 99 mmol/L (98-107); Glucose 94 mg/dL (70-105); Potassium 4.1 mmol/L (3.5-5.1); Sodium 140 mmol/L (136-145)
[2021-09-24] MEDS: Dexmedetomidine 1,000 MCG in Sodium Chloride 0.9% 250 ML 240 ML IVPB SCH (04:58)
[2021-09-24] MEDS: Propofol 1,000 MG/100 ML VIAL IV PRN ×3 (04:58→23:10)
[2021-09-24] MEDS: Lorazepam 2 MG/ML VIAL SLOW IVP PRN ×5 (05:55→23:35)
[2021-09-24] MEDS ORDERED: Fentanyl CADD 100 ML ONE (07:10)
[2021-09-24] MEDS: Fentanyl CADD 100 ML IV SCH (07:15)
[2021-09-24 07:21] LABS: CO2 Tension 59.6 mmHg (35.0-45.0); O2 Tension (PaO2), arterial 66.4 mmHg (80.0-100.0); pH, Arterial 7.38 (7.35-7.45)
[2021-09-24 07:22] LABS: Actual Bicarbonate (HCO3a) 34.8 mEq/L (22-28); Base Excess (BEa) 8.1 mEq/L (-2.0 to +3.0); Calcium, Ionized (arterial) 1.17 mmol/L (1.12-1.30); Carboxyhemoglobin (COHb) 1.3 gm% (0.0-3.0); Hemoglobin (Hb) 11.1 g/dL (14.0-18.0); Potassium - ABG Lab 3.56 mmol/L (3.70-5.30)
[2021-09-24 07:23] LABS: Puncture Site RRA
[2021-09-24] MEDS: Vecuronium 10 MG VIAL IV PRN (07:24)
[2021-09-24] MEDS: VANCOMYCIN 2 GRAM/400 ML BAG 2 GM in Premix Bag 1 BAG IVPB SCH ×2 (08:47→21:48)
[2021-09-24] MEDS: Polyethylene Glycol 3350 17 GM Packet PER TUBE SCH (08:48)
[2021-09-24] MEDS: Enoxaparin Sodium 40 MG/0.4 ML SYRINGE SC SCH ×2 (08:48→21:47)
[2021-09-24] MEDS: Dexamethasone 4 mg/ml Vial SLOW IVP SCH (08:48)
[2021-09-24] MEDS: Cholecalciferol 1,000 UNITS (25 MCG) TAB PO SCH (08:48)
[2021-09-24] MEDS: Zinc Sulfate 220 MG CAP PO SCH (08:49)
[2021-09-24] MEDS: FlunisoLIDE 0.025% Nasal Spray 25 ml Bottle EA NARE SCH ×2 (08:49→21:47)
[2021-09-24] MEDS: Ascorbic Acid 500 mg Chewable Tablet PO SCH (08:49)
[2021-09-24] MEDS: Pantoprazole 40 MG GRANULES PACKET PO SCH (08:49)
[2021-09-24] MEDS: Senokot S 8.6-50 MG TAB PO SCH ×2 (08:49→21:47)
[2021-09-24] MEDS: Morphine 4 MG/ML VIAL SLOW IVP PRN (14:57)
[2021-09-25] MEDS ORDERED: Fentanyl CADD 100 ML ONE (01:16)
[2021-09-25] MEDS: Fentanyl CADD 100 ML IV SCH (01:21)
[2021-09-25] MEDS: Dexmedetomidine 1,000 MCG in Sodium Chloride 0.9% 250 ML 240 ML IVPB SCH ×2 (01:47→20:54)
[2021-09-25] MEDS: Lorazepam 2 MG/ML VIAL SLOW IVP PRN ×4 (05:52→23:53)
[2021-09-25] MEDS: Propofol 1,000 MG/100 ML VIAL IV PRN ×3 (06:42→16:57)
[2021-09-25 07:05] LABS: Actual Bicarbonate (HCO3a) 31.3 mEq/L (22-28); Base Excess (BEa) 6.2 mEq/L (-2.0 to +3.0); Carboxyhemoglobin (COHb) 1.6 gm% (0.0-3.0); Potassium - ABG Lab 3.38 mmol/L (3.70-5.30); pH, Arterial 7.44 (7.35-7.45)
[2021-09-25 07:13] LABS: Puncture Site RRA
[2021-09-25] MEDS: VANCOMYCIN 2 GRAM/400 ML BAG 2 GM in Premix Bag 1 BAG IVPB SCH (08:17)
[2021-09-25] MEDS: Cholecalciferol 1,000 UNITS (25 MCG) TAB PO SCH (08:18)
[2021-09-25] MEDS: Enoxaparin Sodium 40 MG/0.4 ML SYRINGE SC SCH ×2 (08:18→20:55)
[2021-09-25] MEDS: Ascorbic Acid 500 mg Chewable Tablet PO SCH (08:18)
[2021-09-25] MEDS: Polyethylene Glycol 3350 17 GM Packet PER TUBE SCH (08:19)
[2021-09-25] MEDS: FlunisoLIDE 0.025% Nasal Spray 25 ml Bottle EA NARE SCH ×2 (08:19→20:55)
[2021-09-25] MEDS: Senokot S 8.6-50 MG TAB PO SCH ×2 (08:19→20:57)
[2021-09-25] MEDS: Pantoprazole 40 MG GRANULES PACKET PO SCH (08:19)
[2021-09-25] MEDS: Zinc Sulfate 220 MG CAP PO SCH (08:19)
[2021-09-25] MEDS: Dexamethasone 4 mg/ml Vial SLOW IVP SCH (08:19)
[2021-09-25 11:34] LABS: #Eosinphils 0.2 thou/uL (0.0-0.7); #Monocytes 0.6 thou/uL (0.11-0.59); #Neutrophils 7.5 thou/uL (1.40-6.50); %Basophils 0.4 % (0.0-1.0); %Eosinophils 1.7 % (0.0-10.0); %Lymphocytes 10.3 % (21.0-51.0); %Neutrophils 81.5 % (42.0-75.0); Hemoglobin 10.2 g/dL (14.0-18.0); Mean Corpuscular HGB CONC 33.2 g/dL (32.0-36.0); Mean Corpuscular Hemoglobin 28.6 pg (27.0-31.0); Mean Corpuscular Volume 86.2 fL (78.0-98.0); Mean Platelet Volume 9.1 fL (7.4-10.4); Platelet Count 341 thou/uL (130-400); RBC Distribution Width 14.9 % (11.5-14.5); Red Blood Cell (RBC) Count 3.58 mill/uL (4.70-6.10); White Blood Cell (WBC) Count 9.2 thou/uL (4.8-10.8)
[2021-09-25] MEDS: Vecuronium 10 MG VIAL IV PRN (11:50)
[2021-09-25 12:01] LABS: Anion Gap 12 mmol/L (10-20); BUN (Urea Nitrogen) 16 mg/dL (8.4-25.7); Calc. Creatinine Clearance 104 mL/min (70-130); Calcium 8.7 mg/dL (7.8-10.44); Carbon Dioxide 32 mmol/L (22-29); Chloride 99 mmol/L (98-107); Glucose 134 mg/dL (70-105); Potassium 3.7 mmol/L (3.5-5.1); Sodium 139 mmol/L (136-145)
[2021-09-25 21:20] LABS: Vancomycin, Trough 9.3 ug/mL
[2021-09-25] MEDS: VANCOMYCIN 1.75 GM/350 ML BAG 1.75 GM in Premix Bag 1 BAG IVPB SCH (23:59)
[2021-09-26] MEDS: Propofol 1,000 MG/100 ML VIAL IV PRN ×4 (02:36→23:48)
[2021-09-26 04:03] LABS: #Eosinphils 0.1 thou/uL (0.0-0.7); #Lymphocytes 1.8 thou/uL (1.20-3.40); #Monocytes 0.7 thou/uL (0.11-0.59); #Neutrophils 5.8 thou/uL (1.40-6.50); %Basophils 0.4 % (0.0-1.0); %Eosinophils 1.4 % (0.0-10.0); %Lymphocytes 21.8 % (21.0-51.0); %Monocytes 8.1 % (0.0-10.0); %Neutrophils 68.3 % (42.0-75.0); Hemoglobin 10.3 g/dL (14.0-18.0); Mean Corpuscular Hemoglobin 27.4 pg (27.0-31.0); Mean Corpuscular Volume 85.6 fL (78.0-98.0); Mean Platelet Volume 9.3 fL (7.4-10.4); Platelet Count 338 thou/uL (130-400); RBC Distribution Width 15.2 % (11.5-14.5); Red Blood Cell (RBC) Count 3.78 mill/uL (4.70-6.10); White Blood Cell (WBC) Count 8.5 thou/uL (4.8-10.8)
[2021-09-26 04:29] LABS: Anion Gap 13 mmol/L (10-20); BUN (Urea Nitrogen) 17 mg/dL (8.4-25.7); Calc. Creatinine Clearance 212 mL/min (70-130); Calcium 8.8 mg/dL (7.8-10.44); Carbon Dioxide 29 mmol/L (22-29); Chloride 103 mmol/L (98-107); Glucose 98 mg/dL (70-105); Potassium 3.8 mmol/L (3.5-5.1); Sodium 141 mmol/L (136-145)
[2021-09-26] MEDS: VANCOMYCIN 1.75 GM/350 ML BAG 1.75 GM in Premix Bag 1 BAG IVPB SCH (06:22)
[2021-09-26 08:00] LABS: Actual Bicarbonate (HCO3a) 30.2 mEq/L (22-28); CO2 Tension 42.6 mmHg (35.0-45.0); Calcium, Ionized (arterial) 1.17 mmol/L (1.12-1.30); Carboxyhemoglobin (COHb) 1.1 gm% (0.0-3.0); Hemoglobin (Hb) 11.1 g/dL (14.0-18.0); Potassium - ABG Lab 3.75 mmol/L (3.70-5.30); pH, Arterial 7.47 (7.35-7.45)
[2021-09-26 08:02] LABS: O2 Tension (PaO2), arterial 56.8 mmHg (80.0-100.0)
[2021-09-26 08:03] LABS: Puncture Site RRA
[2021-09-26] MEDS: Dexamethasone 4 mg/ml Vial SLOW IVP SCH (08:16)
[2021-09-26] MEDS: Ascorbic Acid 500 mg Chewable Tablet PO SCH (08:16)
[2021-09-26] MEDS: Pantoprazole 40 MG GRANULES PACKET PO SCH (08:16)
[2021-09-26] MEDS: Enoxaparin Sodium 40 MG/0.4 ML SYRINGE SC SCH ×2 (08:16→21:37)
[2021-09-26] MEDS: Senokot S 8.6-50 MG TAB PO SCH ×2 (08:16→21:37)
[2021-09-26] MEDS: Cholecalciferol 1,000 UNITS (25 MCG) TAB PO SCH (08:16)
[2021-09-26] MEDS: Zinc Sulfate 220 MG CAP PO SCH (08:16)
[2021-09-26] MEDS: Polyethylene Glycol 3350 17 GM Packet PER TUBE SCH (08:16)
[2021-09-26] MEDS: FlunisoLIDE 0.025% Nasal Spray 25 ml Bottle EA NARE SCH ×2 (08:17→21:36)
[2021-09-26] MEDS: Vecuronium 10 MG VIAL IV PRN (11:29)
[2021-09-26] MEDS ORDERED: Fentanyl CADD 100 ML ONE (11:48)
[2021-09-26] MEDS: Fentanyl CADD 100 ML IV SCH (11:51)
[2021-09-26] MEDS: Lorazepam 2 MG/ML VIAL SLOW IVP PRN ×2 (13:08→23:44)
[2021-09-26] MEDS: Dexmedetomidine 1,000 MCG in Sodium Chloride 0.9% 250 ML 240 ML IVPB SCH (13:37)
[2021-09-26] MEDS ORDERED: Sulfameth/Trimethoprim DS 800-160mg TAB PO SCH (15:45)
[2021-09-26 19:43] LABS: INR-International Normal Ratio 1.1; PTT 29.7 sec (22.9-36.1); Prothrombin Time 13.9 sec (12.0-14.7)
[2021-09-26 21:34] LABS: Vancomycin, Trough 10.5 ug/mL
[2021-09-26] MEDS: VANCOMYCIN 2 GRAM/400 ML BAG 2 GM in Premix Bag 1 BAG IVPB SCH (23:23)
[2021-09-27] MEDS: Lorazepam 2 MG/ML VIAL SLOW IVP PRN ×3 (04:18→19:59)
[2021-09-27 04:53] LABS: #Eosinphils 0.2 thou/uL (0.0-0.7); #Lymphocytes 1.7 thou/uL (1.20-3.40); #Monocytes 0.5 thou/uL (0.11-0.59); %Basophils 0.7 % (0.0-1.0); %Eosinophils 2.9 % (0.0-10.0); %Lymphocytes 26.7 % (21.0-51.0); %Monocytes 7.6 % (0.0-10.0); Hemoglobin 10.1 g/dL (14.0-18.0); Mean Corpuscular HGB CONC 32.7 g/dL (32.0-36.0); Mean Corpuscular Hemoglobin 28.4 pg (27.0-31.0); Mean Platelet Volume 9.3 fL (7.4-10.4); Platelet Count 293 thou/uL (130-400); RBC Distribution Width 15.2 % (11.5-14.5); Red Blood Cell (RBC) Count 3.55 mill/uL (4.70-6.10); White Blood Cell (WBC) Count 6.4 thou/uL (4.8-10.8)
[2021-09-27 05:14] LABS: ALT (SGPT) 59 U/L (8-55); AST (SGOT) 21 U/L (5-34); Albumin 3.2 g/dL (3.5-5.0); Alkaline Phosphatase 47 U/L (40-110); Anion Gap 11 mmol/L (10-20); BUN (Urea Nitrogen) 25 mg/dL (8.4-25.7); Bilirubin, Total 0.5 mg/dL (0.2-1.2); Calc. Creatinine Clearance 209 mL/min (70-130); Calcium 9.1 mg/dL (7.8-10.44); Carbon Dioxide 30 mmol/L (22-29); Chloride 103 mmol/L (98-107); Globulin 2.8 g/dL (2.4-3.5); Glucose 103 mg/dL (70-105); Magnesium 1.8 mg/dL (1.6-2.6); Phosphorus 3.2 mg/dL (2.3-4.7); Potassium 3.5 mmol/L (3.5-5.1); Sodium 140 mmol/L (136-145)
[2021-09-27] MEDS ORDERED: Fentanyl CADD 100 ML ONE (05:47)
[2021-09-27] MEDS: Fentanyl CADD 100 ML IV SCH (05:49)
[2021-09-27] MEDS: Propofol 1,000 MG/100 ML VIAL IV PRN ×3 (05:49→21:38)
[2021-09-27] MEDS ORDERED: Bupivacaine PF 0.5% 30 ML VIAL ONE ×2 (07:27→07:29)
[2021-09-27] MEDS ORDERED: Lidocaine 1% w/Epinephrine 1:100K 20 ML VIAL ONE ×2 (07:27→07:29)
[2021-09-27] MEDS ORDERED: Midazolam HCl 2 mg/2 ml Vial ONE (07:29)
[2021-09-27] MEDS ORDERED: Fentanyl 100 MCG/2 ML VIAL ONE (07:29)
[2021-09-27 07:49] LABS: Actual Bicarbonate (HCO3a) 29.3 mEq/L (22-28); Base Excess (BEa) 4.5 mEq/L (-2.0 to +3.0); CO2 Tension 44.7 mmHg (35.0-45.0); Calcium, Ionized (arterial) 1.15 mmol/L (1.12-1.30); Carboxyhemoglobin (COHb) 1.1 gm% (0.0-3.0); pH, Arterial 7.44 (7.35-7.45)
[2021-09-27 07:53] LABS: ALV-art Gradient 157.975 mmHg (0-20); Puncture Site LRA
[2021-09-27] MEDS ORDERED: Rocuronium Bromide 10 MG/ML (10ML VIAL) ONE (08:04)
[2021-09-27] MEDS ORDERED: Ondansetron PF 4 MG/2 ML Vial ONE (08:04)
[2021-09-27] MEDS ORDERED: PHENYLEPHRINE-NS 100 MCG/ML 10 ML SYRINGE ONE (08:04)
[2021-09-27] MEDS ORDERED: Dexamethasone 20 MG/5 ML VIAL ONE (08:04)
[2021-09-27] MEDS: Ascorbic Acid 500 mg Chewable Tablet PO SCH (09:24)
[2021-09-27] MEDS: Enoxaparin Sodium 40 MG/0.4 ML SYRINGE SC SCH ×2 (09:24→20:18)
[2021-09-27] MEDS: Dexamethasone 4 mg/ml Vial SLOW IVP SCH (09:24)
[2021-09-27] MEDS: Cholecalciferol 1,000 UNITS (25 MCG) TAB PO SCH (09:25)
[2021-09-27] MEDS: FlunisoLIDE 0.025% Nasal Spray 25 ml Bottle EA NARE SCH ×2 (09:25→20:13)
[2021-09-27] MEDS: Polyethylene Glycol 3350 17 GM Packet PER TUBE SCH (09:25)
[2021-09-27] MEDS: Pantoprazole 40 MG GRANULES PACKET PO SCH (09:25)
[2021-09-27] MEDS: Senokot S 8.6-50 MG TAB PO SCH ×2 (09:25→20:18)
[2021-09-27] MEDS: Zinc Sulfate 220 MG CAP PO SCH (09:26)
[2021-09-27] MEDS: Dexmedetomidine 1,000 MCG in Sodium Chloride 0.9% 250 ML 240 ML IVPB SCH (16:18)
[2021-09-28] MEDS ORDERED: Fentanyl CADD 100 ML ONE ×2 (01:16→22:34)
[2021-09-28] MEDS: Fentanyl CADD 100 ML IV SCH ×2 (01:29→22:39)
[2021-09-28] MEDS: Lorazepam 2 MG/ML VIAL SLOW IVP PRN ×3 (02:58→12:07)
[2021-09-28 04:03] LABS: ALT (SGPT) 53 U/L (8-55); AST (SGOT) 21 U/L (5-34); Albumin 3.4 g/dL (3.5-5.0); Alkaline Phosphatase 44 U/L (40-110); Anion Gap 14 mmol/L (10-20); BUN (Urea Nitrogen) 16 mg/dL (8.4-25.7); Bilirubin, Total 0.8 mg/dL (0.2-1.2); Calc. Creatinine Clearance 207 mL/min (70-130); Calcium 8.8 mg/dL (7.8-10.44); Carbon Dioxide 30 mmol/L (22-29); Chloride 99 mmol/L (98-107); Globulin 2.8 g/dL (2.4-3.5); Glucose 93 mg/dL (70-105); Magnesium 1.9 mg/dL (1.6-2.6); Phosphorus 2.8 mg/dL (2.3-4.7); Potassium 3.5 mmol/L (3.5-5.1); Protein, Total 6.2 g/dL (6.0-8.3); Sodium 139 mmol/L (136-145)
[2021-09-28] MEDS: Propofol 1,000 MG/100 ML VIAL IV PRN (04:54)
[2021-09-28 07:47] LABS: Actual Bicarbonate (HCO3a) 31.4 mEq/L (22-28); Base Excess (BEa) 6.4 mEq/L (-2.0 to +3.0); CO2 Tension 47.4 mmHg (35.0-45.0); Calcium, Ionized (arterial) 1.12 mmol/L (1.12-1.30); Carboxyhemoglobin (COHb) 1.4 gm% (0.0-3.0); Hemoglobin (Hb) 10.5 g/dL (14.0-18.0); Potassium - ABG Lab 3.23 mmol/L (3.70-5.30); pH, Arterial 7.44 (7.35-7.45)
[2021-09-28 07:48] LABS: Puncture Site RRA
[2021-09-28] MEDS ORDERED: Sulfameth/Trimethoprim DS 800-160mg TAB PO SCH (09:00)
[2021-09-28] MEDS: Senokot S 8.6-50 MG TAB PO SCH ×2 (09:57→21:39)
[2021-09-28] MEDS: Ascorbic Acid 500 mg Chewable Tablet PO SCH (09:57)
[2021-09-28] MEDS: Polyethylene Glycol 3350 17 GM Packet PER TUBE SCH (09:57)
[2021-09-28] MEDS: Zinc Sulfate 220 MG CAP PO SCH (09:57)
[2021-09-28] MEDS: Cholecalciferol 1,000 UNITS (25 MCG) TAB PO SCH (09:57)
[2021-09-28] MEDS: Enoxaparin Sodium 40 MG/0.4 ML SYRINGE SC SCH ×2 (09:57→21:39)
[2021-09-28] MEDS: Dexamethasone 4 mg/ml Vial SLOW IVP SCH (09:58)
[2021-09-28] MEDS: FlunisoLIDE 0.025% Nasal Spray 25 ml Bottle EA NARE SCH ×2 (10:17→21:40)
[2021-09-28] MEDS: fentaNYL 75 mcg/hour Patch TD SCH (10:47)
[2021-09-28] MEDS: Pantoprazole 40 MG VIAL IVP SCH (12:09)
[2021-09-28] MEDS: Dexmedetomidine 1,000 MCG in Sodium Chloride 0.9% 250 ML 240 ML IVPB SCH (14:00)
[2021-09-29] MEDS: Dexmedetomidine 1,000 MCG in Sodium Chloride 0.9% 250 ML 240 ML IVPB SCH ×3 (00:29→18:18)
[2021-09-29] MEDS: Lorazepam 2 MG/ML VIAL SLOW IVP PRN (01:40)
[2021-09-29 04:54] LABS: #Eosinphils 0.2 thou/uL (0.0-0.7); #Lymphocytes 1.7 thou/uL (1.20-3.40); #Monocytes 0.8 thou/uL (0.11-0.59); #Neutrophils 5.1 thou/uL (1.40-6.50); %Basophils 0.5 % (0.0-1.0); %Eosinophils 2.4 % (0.0-10.0); %Lymphocytes 22.1 % (21.0-51.0); %Monocytes 9.6 % (0.0-10.0); %Neutrophils 65.4 % (42.0-75.0); Hemoglobin 9.8 g/dL (14.0-18.0); Mean Corpuscular HGB CONC 31.1 g/dL (32.0-36.0); Mean Corpuscular Hemoglobin 27.2 pg (27.0-31.0); Mean Corpuscular Volume 87.3 fL (78.0-98.0); Mean Platelet Volume 9.4 fL (7.4-10.4); Platelet Count 268 thou/uL (130-400); RBC Distribution Width 15.4 % (11.5-14.5); Red Blood Cell (RBC) Count 3.61 mill/uL (4.70-6.10); White Blood Cell (WBC) Count 7.8 thou/uL (4.8-10.8)
[2021-09-29 06:03] LABS: ALT (SGPT) 46 U/L (8-55); AST (SGOT) 16 U/L (5-34); Albumin 3.1 g/dL (3.5-5.0); Alkaline Phosphatase 43 U/L (40-110); Anion Gap 13 mmol/L (10-20); BUN (Urea Nitrogen) 15 mg/dL (8.4-25.7); Bilirubin, Total 0.7 mg/dL (0.2-1.2); Calc. Creatinine Clearance 218 mL/min (70-130); Calcium 8.8 mg/dL (7.8-10.44); Carbon Dioxide 32 mmol/L (22-29); Chloride 99 mmol/L (98-107); Globulin 2.8 g/dL (2.4-3.5); Glucose 95 mg/dL (70-105); Magnesium 1.8 mg/dL (1.6-2.6); Phosphorus 3.5 mg/dL (2.3-4.7); Potassium 3.5 mmol/L (3.5-5.1); Protein, Total 5.9 g/dL (6.0-8.3); Sodium 140 mmol/L (136-145)
[2021-09-29 06:24] LABS: Actual Bicarbonate (HCO3a) 34.9 mEq/L (22-28); Base Excess (BEa) 9.3 mEq/L (-2.0 to +3.0); CO2 Tension 53.1 mmHg (35.0-45.0); Calcium, Ionized (arterial) 1.13 mmol/L (1.12-1.30); Carboxyhemoglobin (COHb) 0.8 gm% (0.0-3.0); Hemoglobin (Hb) 10.6 g/dL (14.0-18.0); Potassium - ABG Lab 3.45 mmol/L (3.70-5.30); pH, Arterial 7.44 (7.35-7.45)
[2021-09-29 06:25] LABS: Puncture Site RRA
[2021-09-29 06:26] LABS: ALV-art Gradient 156.825 mmHg (0-20)
[2021-09-29] MEDS: Morphine 4 MG/ML VIAL SLOW IVP PRN ×2 (09:00→15:18)
[2021-09-29] MEDS: Senokot S 8.6-50 MG TAB PO SCH ×2 (10:36→21:51)
[2021-09-29] MEDS: Enoxaparin Sodium 40 MG/0.4 ML SYRINGE SC SCH ×2 (10:36→21:51)
[2021-09-29] MEDS: Polyethylene Glycol 3350 17 GM Packet PER TUBE SCH (10:36)
[2021-09-29] MEDS: Pantoprazole 40 MG VIAL IVP SCH (10:36)
[2021-09-29] MEDS: Cholecalciferol 1,000 UNITS (25 MCG) TAB PO SCH (10:36)
[2021-09-29] MEDS: Ascorbic Acid 500 mg Chewable Tablet PO SCH (10:37)
[2021-09-29] MEDS: Ziprasidone 20 MG CAP PER TUBE SCH ×2 (10:37→21:51)
[2021-09-29] MEDS: Zinc Sulfate 220 MG CAP PO SCH (10:37)
[2021-09-29] MEDS: Valproate Sodium 250 mg/5 ml UD Cup PER TUBE SCH ×3 (10:37→21:51)
[2021-09-29] MEDS: Dexamethasone 4 mg/ml Vial SLOW IVP SCH (10:37)
[2021-09-29] MEDS: FlunisoLIDE 0.025% Nasal Spray 25 ml Bottle EA NARE SCH ×2 (10:38→21:51)
[2021-09-30] MEDS: Acetaminophen 325 MG TAB PO PRN ×3 (00:10→15:51)
[2021-09-30] MEDS: Dexmedetomidine 1,000 MCG in Sodium Chloride 0.9% 250 ML 240 ML IVPB SCH ×3 (00:10→14:15)
[2021-09-30] MEDS ORDERED: Fentanyl CADD 100 ML ONE ×2 (00:24→23:04)
[2021-09-30] MEDS: Fentanyl CADD 100 ML IV SCH ×2 (00:30→23:10)
[2021-09-30 04:13] LABS: #Eosinphils 0.2 thou/uL (0.0-0.7); #Lymphocytes 1.7 thou/uL (1.20-3.40); #Monocytes 0.7 thou/uL (0.11-0.59); %Basophils 0.6 % (0.0-1.0); %Eosinophils 2.1 % (0.0-10.0); %Lymphocytes 22.1 % (21.0-51.0); %Monocytes 8.6 % (0.0-10.0); %Neutrophils 66.7 % (42.0-75.0); Hemoglobin 9.9 g/dL (14.0-18.0); Mean Corpuscular HGB CONC 32.5 g/dL (32.0-36.0); Mean Corpuscular Hemoglobin 28.3 pg (27.0-31.0); Mean Corpuscular Volume 87.2 fL (78.0-98.0); Mean Platelet Volume 9.5 fL (7.4-10.4); Platelet Count 248 thou/uL (130-400); RBC Distribution Width 15.2 % (11.5-14.5); Red Blood Cell (RBC) Count 3.48 mill/uL (4.70-6.10); White Blood Cell (WBC) Count 7.6 thou/uL (4.8-10.8)
[2021-09-30 04:25] LABS: ALT (SGPT) 31 U/L (8-55); AST (SGOT) 12 U/L (5-34); Albumin 3.2 g/dL (3.5-5.0); Alkaline Phosphatase 41 U/L (40-110); Anion Gap 12 mmol/L (10-20); BUN (Urea Nitrogen) 12 mg/dL (8.4-25.7); Bilirubin, Total 0.8 mg/dL (0.2-1.2); Calc. Creatinine Clearance 210 mL/min (70-130); Calcium 8.7 mg/dL (7.8-10.44); Carbon Dioxide 32 mmol/L (22-29); Chloride 99 mmol/L (98-107); Globulin 2.7 g/dL (2.4-3.5); Glucose 96 mg/dL (70-105); Magnesium 1.9 mg/dL (1.6-2.6); Phosphorus 2.8 mg/dL (2.3-4.7); Potassium 3.8 mmol/L (3.5-5.1); Protein, Total 5.9 g/dL (6.0-8.3); Sodium 139 mmol/L (136-145)
[2021-09-30 07:17] LABS: CO2 Tension 42.9 mmHg (35.0-45.0); Calcium, Ionized (arterial) 1.16 mmol/L (1.12-1.30); Carboxyhemoglobin (COHb) 1.2 gm% (0.0-3.0); Hemoglobin (Hb) 10.5 g/dL (14.0-18.0); Potassium - ABG Lab 3.71 mmol/L (3.70-5.30)
[2021-09-30 07:19] LABS: O2 Tension (PaO2), arterial 43.2 mmHg (80.0-100.0); Puncture Site RRA
[2021-09-30 07:20] LABS: ALV-art Gradient 188.375 mmHg (0-20)
[2021-09-30] MEDS: Lorazepam 2 MG/ML VIAL SLOW IVP PRN ×2 (07:52→10:30)
[2021-09-30] MEDS: Ascorbic Acid 500 mg Chewable Tablet PO SCH (08:57)
[2021-09-30] MEDS: Valproate Sodium 250 mg/5 ml UD Cup PER TUBE SCH ×3 (08:57→20:16)
[2021-09-30] MEDS: Senokot S 8.6-50 MG TAB PO SCH ×2 (08:57→20:16)
[2021-09-30] MEDS: Zinc Sulfate 220 MG CAP PO SCH (08:57)
[2021-09-30] MEDS: Ziprasidone 20 MG CAP PER TUBE SCH ×2 (08:57→20:16)
[2021-09-30] MEDS: Polyethylene Glycol 3350 17 GM Packet PER TUBE SCH (08:57)
[2021-09-30] MEDS: Cholecalciferol 1,000 UNITS (25 MCG) TAB PO SCH (08:57)
[2021-09-30] MEDS: Pantoprazole 40 MG VIAL IVP SCH (08:57)
[2021-09-30] MEDS: FlunisoLIDE 0.025% Nasal Spray 25 ml Bottle EA NARE SCH ×2 (08:58→20:16)
[2021-09-30] MEDS: Dexamethasone 4 mg/ml Vial SLOW IVP SCH (08:58)
[2021-09-30] MEDS: Enoxaparin Sodium 40 MG/0.4 ML SYRINGE SC SCH ×2 (08:58→20:16)
[2021-09-30] MEDS: Morphine 4 MG/ML VIAL SLOW IVP PRN (09:47)
[2021-10-01] MEDS: Lorazepam 2 MG/ML VIAL SLOW IVP PRN ×4 (02:34→21:03)
[2021-10-01] MEDS ORDERED: Sterile Water 10 ML ONE ×5 (03:23→07:28)
[2021-10-01] MEDS: Vecuronium 10 MG VIAL IV PRN ×3 (03:26→07:36)
[2021-10-01 04:07] LABS: #Eosinphils 0.2 thou/uL (0.0-0.7); #Lymphocytes 2.9 thou/uL (1.20-3.40); #Monocytes 1.2 thou/uL (0.11-0.59); #Neutrophils 6.2 thou/uL (1.40-6.50); %Basophils 0.5 % (0.0-1.0); %Lymphocytes 27.6 % (21.0-51.0); %Monocytes 11.2 % (0.0-10.0); %Neutrophils 58.7 % (42.0-75.0); Mean Corpuscular HGB CONC 31.8 g/dL (32.0-36.0); Mean Corpuscular Hemoglobin 28.1 pg (27.0-31.0); Mean Corpuscular Volume 88.5 fL (78.0-98.0); Mean Platelet Volume 9.5 fL (7.4-10.4); Platelet Count 257 thou/uL (130-400); RBC Distribution Width 15.2 % (11.5-14.5); Red Blood Cell (RBC) Count 3.91 mill/uL (4.70-6.10); White Blood Cell (WBC) Count 10.5 thou/uL (4.8-10.8)
[2021-10-01] MEDS: Propofol 1,000 MG/100 ML VIAL IV PRN ×3 (04:21→23:37)
[2021-10-01 04:53] LABS: Actual Bicarbonate (HCO3a) 31.9 mEq/L (22-28); Base Excess (BEa) 2.2 mEq/L (-2.0 to +3.0); Carboxyhemoglobin (COHb) 1.2 gm% (0.0-3.0); Hemoglobin (Hb) 11.9 g/dL (14.0-18.0); O2 Tension (PaO2), arterial 104.1 mmHg (80.0-100.0); Potassium - ABG Lab 4.21 mmol/L (3.70-5.30)
[2021-10-01 04:55] LABS: CO2 Tension 79.8 mmHg (35.0-45.0); Puncture Site RRA; pH, Arterial 7.22 (7.35-7.45)
[2021-10-01] MEDS ORDERED: Labetalol HCl 100 MG/20 ML VIAL SLOW IVP SCH (05:00)
[2021-10-01 05:05] LABS: ALT (SGPT) 29 U/L (8-55); AST (SGOT) 19 U/L (5-34); Albumin 3.4 g/dL (3.5-5.0); Alkaline Phosphatase 46 U/L (40-110); Anion Gap 13 mmol/L (10-20); BUN (Urea Nitrogen) 14 mg/dL (8.4-25.7); Bilirubin, Total 0.9 mg/dL (0.2-1.2); Calc. Creatinine Clearance 212 mL/min (70-130); Calcium 9.2 mg/dL (7.8-10.44); Carbon Dioxide 34 mmol/L (22-29); Chloride 97 mmol/L (98-107); Globulin 3.3 g/dL (2.4-3.5); Glucose 103 mg/dL (70-105); Magnesium 1.9 mg/dL (1.6-2.6); Phosphorus 3.8 mg/dL (2.3-4.7); Potassium 4.1 mmol/L (3.5-5.1); Protein, Total 6.7 g/dL (6.0-8.3); Sodium 140 mmol/L (136-145)
[2021-10-01 05:16] LABS: Lactic Acid 0.9 mmol/L (0.5-2.2)
[2021-10-01] MEDS: Acetaminophen 325 MG TAB PO PRN ×2 (05:27→20:58)
[2021-10-01] MEDS ORDERED: Norepinephrine 8 MG/0.9% NS 250 ML IVPB PRN (07:39)
[2021-10-01] MEDS ORDERED: Vecuronium 10 MG VIAL IV PRN (07:40)
[2021-10-01] MEDS ORDERED: Acetaminophen 650 MG/20.3 ML UDCUP PER TUBE SCH (08:00)
[2021-10-01] MEDS ORDERED: Norepinephrine 8 MG in Dextrose 5% in Water 242 ML IVPB SCH (08:30)
[2021-10-01] MEDS: fentaNYL 75 mcg/hour Patch TD SCH ×2 (09:30→23:53)
[2021-10-01] MEDS: Zinc Sulfate 220 MG CAP PO SCH (09:40)
[2021-10-01] MEDS: Polyethylene Glycol 3350 17 GM Packet PER TUBE SCH (09:40)
[2021-10-01] MEDS: Senokot S 8.6-50 MG TAB PO SCH ×2 (09:40→20:48)
[2021-10-01] MEDS: Cholecalciferol 1,000 UNITS (25 MCG) TAB PO SCH (09:40)
[2021-10-01] MEDS: Enoxaparin Sodium 40 MG/0.4 ML SYRINGE SC SCH ×2 (09:40→20:48)
[2021-10-01] MEDS: Dexamethasone 4 mg/ml Vial SLOW IVP SCH (09:40)
[2021-10-01] MEDS: Ascorbic Acid 500 mg Chewable Tablet PO SCH (09:41)
[2021-10-01] MEDS: Pantoprazole 40 MG VIAL IVP SCH (09:41)
[2021-10-01] MEDS: Ziprasidone 20 MG CAP PER TUBE SCH ×2 (09:41→20:49)
[2021-10-01] MEDS: Valproate Sodium 250 mg/5 ml UD Cup PER TUBE SCH ×3 (10:00→21:12)
[2021-10-01] MEDS: FlunisoLIDE 0.025% Nasal Spray 25 ml Bottle EA NARE SCH ×2 (10:17→20:48)
[2021-10-01] MEDS ORDERED: Vancomycin HCl 1.25 GM in Sodium Chloride 0.9% 250 ML 250 ML IVPB SCH (13:00)
[2021-10-01] MEDS ORDERED: VANCOMYCIN 1.25 GM/250 ML BAG 1.25 GM in Premix Bag 1 BAG IVPB SCH (13:00)
[2021-10-01] MEDS ORDERED: MEROPENEM 1 GM/50 ML 1 GM in Premix Bag 1 BAG IVPB SCH ×2 (13:00→21:00)
[2021-10-01] MEDS ORDERED: Meropenem 1 GM in Sodium Chloride 0.9% 100 ML IVPB SCH ×2 (14:00→16:15)
[2021-10-01] MEDS: Meropenem 1 GM in Sodium Chloride 0.9% 100 ML IVPB SCH (20:48)
[2021-10-01] MEDS: VANCOMYCIN 1.75 GM/350 ML BAG 1.75 GM in Premix Bag 1 BAG IVPB SCH (20:49)
[2021-10-01] MEDS: Dexmedetomidine 1,000 MCG in Sodium Chloride 0.9% 250 ML 240 ML IVPB SCH (20:51)
[2021-10-01] MEDS ORDERED: Fentanyl CADD 100 ML ONE (21:14)
[2021-10-01] MEDS: Fentanyl CADD 100 ML IV SCH (21:19)
[2021-10-02] MEDS ORDERED: Acetaminophen 500 MG TAB PO PRN (00:26)
[2021-10-02] MEDS ORDERED: Acetaminophen 325 MG TAB PO SCH (00:30)
[2021-10-02] MEDS: Propofol 1,000 MG/100 ML VIAL IV PRN (05:00)
[2021-10-02] MEDS: Meropenem 1 GM in Sodium Chloride 0.9% 100 ML IVPB SCH ×3 (05:21→20:14)
[2021-10-02] MEDS: VANCOMYCIN 1.75 GM/350 ML BAG 1.75 GM in Premix Bag 1 BAG IVPB SCH ×3 (05:23→20:14)
[2021-10-02 06:23] LABS: #Eosinphils 0.3 thou/uL (0.0-0.7); #Lymphocytes 1.7 thou/uL (1.20-3.40); #Monocytes 1.1 thou/uL (0.11-0.59); #Neutrophils 7.2 thou/uL (1.40-6.50); %Basophils 0.3 % (0.0-1.0); %Eosinophils 2.6 % (0.0-10.0); %Lymphocytes 16.3 % (21.0-51.0); %Monocytes 10.9 % (0.0-10.0); Hemoglobin 10.1 g/dL (14.0-18.0); Mean Corpuscular HGB CONC 32.3 g/dL (32.0-36.0); Mean Corpuscular Hemoglobin 28.1 pg (27.0-31.0); Mean Corpuscular Volume 86.9 fL (78.0-98.0); Mean Platelet Volume 9.1 fL (7.4-10.4); Platelet Count 258 thou/uL (130-400); RBC Distribution Width 14.8 % (11.5-14.5); Red Blood Cell (RBC) Count 3.59 mill/uL (4.70-6.10); White Blood Cell (WBC) Count 10.3 thou/uL (4.8-10.8)
[2021-10-02 06:44] LABS: ALT (SGPT) 22 U/L (8-55); AST (SGOT) 15 U/L (5-34); Alkaline Phosphatase 44 U/L (40-110); Anion Gap 13 mmol/L (10-20); BUN (Urea Nitrogen) 6 mg/dL (8.4-25.7); Bilirubin, Total 0.7 mg/dL (0.2-1.2); Calc. Creatinine Clearance 0 mL/min (70-130); Calcium 8.7 mg/dL (7.8-10.44); Carbon Dioxide 35 mmol/L (22-29); Chloride 96 mmol/L (98-107); Glucose 108 mg/dL (70-105); Magnesium 1.9 mg/dL (1.6-2.6); Phosphorus 3.3 mg/dL (2.3-4.7); Potassium 3.9 mmol/L (3.5-5.1); Sodium 140 mmol/L (136-145)
[2021-10-02 07:29] LABS: Actual Bicarbonate (HCO3a) 33.4 mEq/L (22-28); Base Excess (BEa) 7.9 mEq/L (-2.0 to +3.0); CO2 Tension 51.5 mmHg (35.0-45.0); Calcium, Ionized (arterial) 1.15 mmol/L (1.12-1.30); Hemoglobin (Hb) 10.5 g/dL (14.0-18.0); O2 Tension (PaO2), arterial 78.4 mmHg (80.0-100.0); Potassium - ABG Lab 3.47 mmol/L (3.70-5.30); pH, Arterial 7.43 (7.35-7.45)
[2021-10-02 08:05] LABS: ALV-art Gradient 356.325 mmHg (0-20); Puncture Site RRA
[2021-10-02] MEDS: Cholecalciferol 1,000 UNITS (25 MCG) TAB PO SCH (09:02)
[2021-10-02] MEDS: Ascorbic Acid 500 mg Chewable Tablet PO SCH (09:02)
[2021-10-02] MEDS: Dexamethasone 4 mg/ml Vial SLOW IVP SCH (09:02)
[2021-10-02] MEDS: FlunisoLIDE 0.025% Nasal Spray 25 ml Bottle EA NARE SCH ×2 (09:03→20:18)
[2021-10-02] MEDS: Enoxaparin Sodium 40 MG/0.4 ML SYRINGE SC SCH ×2 (09:03→20:14)
[2021-10-02] MEDS: Senokot S 8.6-50 MG TAB PO SCH ×2 (09:04→20:18)
[2021-10-02] MEDS: Pantoprazole 40 MG VIAL IVP SCH (09:04)
[2021-10-02] MEDS: Zinc Sulfate 220 MG CAP PO SCH (09:04)
[2021-10-02] MEDS: Ziprasidone 20 MG CAP PER TUBE SCH ×2 (09:04→20:15)
[2021-10-02] MEDS: Polyethylene Glycol 3350 17 GM Packet PER TUBE SCH (09:04)
[2021-10-02] MEDS: Valproate Sodium 250 mg/5 ml UD Cup PER TUBE SCH ×3 (09:04→20:14)
[2021-10-02] MEDS: Dexmedetomidine 1,000 MCG in Sodium Chloride 0.9% 250 ML 240 ML IVPB SCH (10:51)
[2021-10-02] MEDS ORDERED: Fentanyl CADD 100 ML ONE (15:44)
[2021-10-02 20:46] LABS: Vancomycin, Trough 11.1 ug/mL
[2021-10-03] MEDS: Dexmedetomidine 1,000 MCG in Sodium Chloride 0.9% 250 ML 240 ML IVPB SCH ×2 (01:46→13:46)
[2021-10-03] MEDS: VANCOMYCIN 1.75 GM/350 ML BAG 1.75 GM in Premix Bag 1 BAG IVPB SCH ×2 (03:32→08:05)
[2021-10-03 04:04] LABS: #Basophils 0.1 thou/uL (0.0-0.2); #Eosinphils 0.1 thou/uL (0.0-0.7); #Lymphocytes 1.1 thou/uL (1.20-3.40); #Monocytes 0.8 thou/uL (0.11-0.59); %Basophils 0.7 % (0.0-1.0); %Eosinophils 1.2 % (0.0-10.0); %Lymphocytes 14.2 % (21.0-51.0); %Monocytes 9.5 % (0.0-10.0); %Neutrophils 74.4 % (42.0-75.0); Hemoglobin 12.6 g/dL (14.0-18.0); Mean Corpuscular HGB CONC 31.3 g/dL (32.0-36.0); Mean Corpuscular Hemoglobin 27.6 pg (27.0-31.0); Mean Corpuscular Volume 88.2 fL (78.0-98.0); Platelet Count 196 thou/uL (130-400); RBC Distribution Width 15.3 % (11.5-14.5); Red Blood Cell (RBC) Count 4.56 mill/uL (4.70-6.10); White Blood Cell (WBC) Count 8.1 thou/uL (4.8-10.8)
[2021-10-03 04:39] LABS: Anion Gap 14 mmol/L (10-20); BUN (Urea Nitrogen) 14 mg/dL (8.4-25.7); Calc. Creatinine Clearance 225 mL/min (70-130); Carbon Dioxide 33 mmol/L (22-29); Chloride 95 mmol/L (98-107); Glucose 86 mg/dL (70-105); Potassium 4.2 mmol/L (3.5-5.1); Sodium 138 mmol/L (136-145)
[2021-10-03 05:26] VITALS: BMI 30.4
[2021-10-03] MEDS: Meropenem 1 GM in Sodium Chloride 0.9% 100 ML IVPB SCH ×2 (05:36→12:14)
[2021-10-03 07:10] LABS: Actual Bicarbonate (HCO3a) 36.4 mEq/L (22-28); Base Excess (BEa) 10.3 mEq/L (-2.0 to +3.0); CO2 Tension 57.5 mmHg (35.0-45.0); Calcium, Ionized (arterial) 1.15 mmol/L (1.12-1.30); Carboxyhemoglobin (COHb) 0.1 gm% (0.0-3.0); Hemoglobin (Hb) 10.2 g/dL (14.0-18.0); Potassium - ABG Lab 3.75 mmol/L (3.70-5.30); pH, Arterial 7.42 (7.35-7.45)
[2021-10-03 07:11] LABS: O2 Tension (PaO2), arterial 49.7 mmHg (80.0-100.0)
[2021-10-03 07:12] LABS: ALV-art Gradient 234.925 mmHg (0-20); Puncture Site LRA
[2021-10-03] MEDS: Ascorbic Acid 500 mg Chewable Tablet PO SCH (07:29)
[2021-10-03] MEDS: Senokot S 8.6-50 MG TAB PO SCH (07:29)
[2021-10-03] MEDS: Dexamethasone 4 mg/ml Vial SLOW IVP SCH (07:29)
[2021-10-03] MEDS: Zinc Sulfate 220 MG CAP PO SCH (07:30)
[2021-10-03] MEDS: Enoxaparin Sodium 40 MG/0.4 ML SYRINGE SC SCH (07:30)
[2021-10-03] MEDS: Cholecalciferol 1,000 UNITS (25 MCG) TAB PO SCH (07:30)
[2021-10-03] MEDS: Pantoprazole 40 MG VIAL IVP SCH (07:31)
[2021-10-03] MEDS: FlunisoLIDE 0.025% Nasal Spray 25 ml Bottle EA NARE SCH (07:31)
[2021-10-03] MEDS: Polyethylene Glycol 3350 17 GM Packet PER TUBE SCH (07:31)
[2021-10-03] MEDS: Ziprasidone 20 MG CAP PER TUBE SCH (08:06)
[2021-10-03] MEDS: Valproate Sodium 250 mg/5 ml UD Cup PER TUBE SCH (08:06)
[2021-10-03 08:43] VITALS: TEMP 99.3
[2021-10-03 12:02] VITALS: BP 99/65
[2021-10-03] MEDS: Lorazepam 2 MG/ML VIAL SLOW IVP PRN (12:14)
[2021-10-03] MEDS: Morphine 4 MG/ML VIAL SLOW IVP PRN (12:16)
[2021-10-04 19:38] LABS: CMV log 10 Quant 3.893 (.)
== END 2021-10-03 13:56 | DRG 4 ==
LOC: ERS 22:23 → ERHOLD 08-25 00:50 → CCU 08-25 00:55 → 2SE 08-25 12:53 → CCU 08-25 15:44 → IMCU/EMU 09-03 16:02 → CCU 09-08 11:19
PROVIDERS: ADMIT Internal Medicine; ATTEND Family Medicine
PROC: XW033E5 Introduction of Remdesivir Anti-infective into Peripheral Vein, Percutaneous Approach, New Technology Group 5 (ICD-10-PCS; principal; 2021-08-25)
PROC: XW0DXM6 Introduction of Baricitinib into Mouth and Pharynx, External Approach, New Technology Group 6 (ICD-10-PCS; 2021-08-25)
PROC: 8E0ZXY6 Isolation (ICD-10-PCS; 2021-08-25)
PROC: 3E0333Z Introduction of Anti-inflammatory into Peripheral Vein, Percutaneous Approach (ICD-10-PCS; 2021-08-25)
PROC: 5A0955A Assistance with Respiratory Ventilation, Greater than 96 Consecutive Hours, High Flow/Velocity Cannula (ICD-10-PCS; 2021-08-25)
PROC: 5A09557 Assistance with Respiratory Ventilation, Greater than 96 Consecutive Hours, Continuous Positive Airway Pressure (ICD-10-PCS; 2021-08-25)
PROC: 5A1955Z Respiratory Ventilation, Greater than 96 Consecutive Hours (ICD-10-PCS; 2021-09-09)
PROC: 0BH18EZ Insertion of Endotracheal Airway into Trachea, Via Natural or Artificial Opening Endoscopic (ICD-10-PCS; 2021-09-09)
PROC: 3E0G76Z Introduction of Nutritional Substance into Upper GI, Via Natural or Artificial Opening (ICD-10-PCS; 2021-09-09)
PROC: 0DH67UZ Insertion of Feeding Device into Stomach, Via Natural or Artificial Opening (ICD-10-PCS; 2021-09-09)
PROC: 0W9B30Z Drainage of Left Pleural Cavity with Drainage Device, Percutaneous Approach (ICD-10-PCS; 2021-09-14)
PROC: 3E033XZ Introduction of Vasopressor into Peripheral Vein, Percutaneous Approach (ICD-10-PCS; 2021-09-16)
PROC: 0B110F4 Bypass Trachea to Cutaneous with Tracheostomy Device, Open Approach (ICD-10-PCS; 2021-09-27)
PROC: 0DH63UZ Insertion of Feeding Device into Stomach, Percutaneous Approach (ICD-10-PCS; 2021-09-27)
DX: A41.89 Other specified sepsis (principal); U07.1 COVID-19; J12.82 Pneumonia due to coronavirus disease 2019; J80 Acute respiratory distress syndrome; E46 Unspecified protein-calorie malnutrition; E87.1 Hypo-osmolality and hyponatremia; J93.83 Other pneumothorax; E87.0 Hyperosmolality and hypernatremia; T82.7XXA Infection and inflammatory reaction due to other cardiac and vascular devices, implants and grafts, initial encounter; Z66 Do not resuscitate; A41.4 Sepsis due to anaerobes; A41.1 Sepsis due to other specified staphylococcus; R13.12 Dysphagia, oropharyngeal phase; E78.00 Pure hypercholesterolemia, unspecified; F17.210 Nicotine dependence, cigarettes, uncomplicated; I10 Essential (primary) hypertension; E78.5 Hyperlipidemia, unspecified; D69.6 Thrombocytopenia, unspecified; D64.9 Anemia, unspecified; G47.33 Obstructive sleep apnea (adult) (pediatric); E66.9 Obesity, unspecified; F41.9 Anxiety disorder, unspecified; E87.5 Hyperkalemia; Y84.8 Other medical procedures as the cause of abnormal reaction of the patient, or of later complication, without mention of misadventure at the time of the procedure; E87.8 Other disorders of electrolyte and fluid balance, not elsewhere classified; Z68.30 Body mass index [BMI] 30.0-30.9, adult; Z78.1 Physical restraint status; Z80.9 Family history of malignant neoplasm, unspecified; Z99.89 Dependence on other enabling machines and devices; Z79.899 Other long term (current) drug therapy; Z79.82 Long term (current) use of aspirin
CPT/HCPCS: 36415; 36416; 36600; 71045; 71275; 80048; 80053; 80202; 80500; 81001; 82728; 82805; 83605; 83735; 83880; 84100; 84145; 84484; 85025; 85379; 85610; 85730; 86140; 86850; 86900; 86901; 87040; 87070; 87077; 87086; 87149; 87186; 87205; 87449; 87497; 93005; 93010; 94002; 94003; 94640; 94660; 96374; 96375; C9113; J0456; J0696; J1100; J1650; J1885; J1940; J1956; J2001; J2060; J2185; J2250; J2270; J2405; J2543; J2704; J2930; J3010; J3370; J3490; J7050; J7070; J7512; J7620; Q9967; S0020; U0002